=== PATIENT | male | born 1940 | race Caucasian/White ===

== ENCOUNTER 2017-02-09 14:29 | Observation (INO) | payer MEDICARE ==
[2017-02-09] MEDS ORDERED: IPRATROPIUM 0.5 MG/2.5 ML NEBU INHALATION STA (15:30)
[2017-02-09] MEDS ORDERED: methylPREDNISolone SOD SUCCI 125 MG/2 ML VIAL IV STA (15:30)
[2017-02-09] MEDS ORDERED: ALBUTEROL NEBULIZED 2.5 MG/3 ML INHALATION STA (15:30)
[2017-02-09 16:18] LABS: ALT 35 U/L (21-72); AST 19 U/L (17-59); Alkaline Phosphatase 77 U/L (38-126); Anion Gap 6 mmol/L; Blood Urea Nitrogen 14 mg/dL (9-20); Calcium 8.4 mg/dL (8.4-10.2); Carbon Dioxide 32 mmol/L (22-30); Chloride 103 mmol/L (98-107); Glucose 83 mg/dL (74-99); Non-African American GFR(MDRD) >60 (>60 ml/min/1.73 sqM); Potassium 4.1 mmol/L (3.5-5.1); Sodium 141 mmol/L (137-145); Total Bilirubin 0.4 mg/dL (0.2-1.3); Total Protein 5.9 g/dL (6.3-8.2)
[2017-02-09 16:28] LABS: INR 3.9 (<1.2); Partial Thromboplastin Time 33.2 sec (22.0-30.0); Prothrombin Time 37.8 sec (9.0-12.0)
[2017-02-09 16:30] LABS: Aty Lym Flag Slight; CH 31.2; CHCM 32.8; Creatine Kinase 24 U/L (55-170); HCT 43.3 % (39.0-53.0); HDW 2.44; HGB 13.9 gm/dL (13.0-17.5); MCH 30.7 pg (25.0-35.0); MCHC 32.1 g/dL (31.0-37.0); MCV 95.5 fL (80.0-100.0); Mean Platelet Volume 8.6; RBC 4.53 m/uL (4.30-5.90); RDW 14.3 % (11.5-15.5); WBC 10.6 k/uL (3.8-10.6); WBC (Perox) 10.51
[2017-02-09 16:43] LABS: Creatine Kinase MB 0.6 ng/mL (0.0-2.4); Troponin I <0.012 ng/mL (0.000-0.034)
--- NOTE | 2017-02-09 16:51 | XR ---
EXAMINATION TYPE: XR chest 2V DATE OF EXAM: 02/09/2017 COMPARISON: 08/28/2012 HISTORY: Shortness of breath TECHNIQUE: Frontal and lateral views of the chest are obtained. FINDINGS: Scattered senescent parenchymal changes noted. Hyperinflation compatible with COPD. Right lower lobe fibrotic change noted. Developing infiltrate is difficult to exclude. Blunting of the right costophre tom angle may reflect small effusion. Heart size is stable. Mediastinal structures are stable and grossly unremarkable. No evidence for hilar prominence. Degenerative changes dorsal spine. IMPRESSION: 1. Right lower lobe fibrotic change noted. Developing infiltrate is difficult to exclude. Blunting of the right costophrenic angle may reflect small effusion.
[2017-02-09 16:58] LABS: Add Differential Manual Differential
[2017-02-09 17:00] LABS: Nucleated Red Blood Cells 0 /100 WBC (0-0)
[2017-02-09 17:01] LABS: Plasma Cells % 1 %; Total Cells Counted 100
[2017-02-09 17:02] LABS: Manual Review Performed; RBC Morphology Normal; Reactive Lymphocytes Present
[2017-02-09] MEDS ORDERED: IPRATROPIUM-ALBUTEROL 3 ML NEB INHALATION PRN (17:06)
--- NOTE | 2017-02-09 17:06 | ED ---
General Adult HPI - General Chief complaint: Shortness of Breath Stated complaint: SOB Time Seen by Provider: 02/09/17 15:20 Source: patient, family, RN notes reviewed Mode of arrival: wheelchair Limitations: no limitations - History of Present Illness Initial comments: 76-year-old male presenting with 3 weeks of increasing cough and difficulty breathing. Patient is on home oxygen secondary to COPD, he normally uses 2 L. He normally uses albuterol as frequently as every 4 hours, over the last several days using it every 3 hours and today he took albuterol at 8 AM, 10 AM and again at 11:30, he still had significant difficulty breathing. He did attempt to be evaluated by his care analyst however he was out of the office. Patient also has past history of atrial fibrillation on Coumadin, and hypertension. He reports worsening cough which is occasionally productive of sputum. Denies fever, does report some right-sided chest pain which is worse with cough. Patient is not been on any steroids recently. He also has had chronic bilateral lower extremity swelling, this is unchanged. - Related Data Home Medications Medication Instructions Recorded Confirmed Albuterol Inhaler [Ventolin Hfa 1 - 2 puff INHALATION RT-Q6H PRN 02/09/17 Inhaler] Albuterol Nebulized [Ventolin 2.5 mg INHALATION RT-Q4H 02/09/17 02/09/17 Nebulized] Fluticasone/Salmeterol [Advair 1 puff INHALATION RT-BID 02/09/17 02/09/17 500-50 Diskus] Ipratropium Nebulized [Atrovent 0.5 mg INHALATION RT-Q4H 02/09/17 02/09/17 Nebulized] Metoprolol Tartrate [Lopressor] 50 mg PO BID 02/09/17 02/09/17 Vit C/E/Zn/Coppr/Lutein/Zeaxan 2 cap PO BID 02/09/17 02/09/17 [Preservision Areds 2 Softgel] Warfarin Sodium 7.5 mg PO MOFR 02/09/17 02/09/17 Warfarin [Coumadin] 7.5 mg PO SUTUWETHSA 02/09/17 02/09/17 amLODIPine [Norvasc] 5 mg PO BID 02/09/17 02/09/17 Allergies Allergy/AdvReac Type Severity Reaction Status Date / Time No Known Allergies Allergy Verified 02/09/17 15:45 Review of Systems ROS Statement: Those systems with pertinent positive or pertinent negative responses have been documented in the HPI. ROS Other: All systems not noted in ROS Statement are negative. Past Medical History Past Medical History: Atrial Fibrillation, COPD, Hypertension Additional Past Medical History / Comment(s): macular degeneration History of Any Multi-Drug Resistant Organisms: None Reported Past Surgical History: No Surgical Hx Reported Past Psychological History: No Psychological Hx Reported Smoking Status: Former smoker Past Alcohol Use History: None Reported Past Drug Use History: None Reported General Exam Limitations: no limitations General appearance: alert, in distress Head exam: Present: atraumatic, normocephalic Eye exam: Present: normal appearance, PERRL ENT exam: Present: normal exam, mucous membranes moist Neck exam: Present: normal inspection. Absent: tenderness, meningismus Respiratory exam: Present: respiratory distress, wheezes, decreased breath sounds, prolonged expiratory Cardiovascular Exam: Present: regular rate, irregular rhythm GI/Abdominal exam: Present: soft. Absent: distended, tenderness, guarding Extremities exam: Present: normal inspection, normal capillary refill, pedal edema Back exam: Present: normal inspection Neurological exam: Present: alert, oriented X3, CN II-XII intact. Absent: motor sensory deficit Psychiatric exam: Present: normal affect, normal mood Skin exam: Present: warm, dry, intact. Absent: cyanosis, diaphoretic Course Vital Signs 02/09/17 02/09/17 02/09/17 14:38 15:44 16:00 Temperature 97.2 F L Pulse Rate 76 78 69 Respiratory 18 Rate Blood Pressure 136/76 O2 Sat by Pulse 96 Oximetry 02/09/17 02/09/17 16:14 16:31 Temperature Pulse Rate 68 81 Respiratory Rate Blood Pressure O2 Sat by Pulse Oximetry - Reevaluation(s) Reevaluation #1: 02/09/17 17:03 Patient is given albuterol, Atrovent, steroids, reevaluation he continues to be quite dyspneic. EKG Findings - EKG Comments: EKG Findings:: EKG shows atrial fibrillation, ventricular rate of 75, QRS duration 82, QTC 473, no signs of ischemia Medical Decision Making - Medical Decision Making 72 male with history of COPD on home oxygen presents with worsening cough and dyspnea. Patient denies typical chest pain or fever. Chest x-rays obtained shows possible early infiltrate versus fibrotic change. INR is elevated at 3.9 , Coumadin will be held. CO2 is 32 consistent with chronic CO2 retention. Troponin is negative. EKG is nonischemic. On reevaluation patient is still quite dyspneic, requiring additional supplement oxygen. Patient will be admitted for further treatments. He is agreeable with this plan. Diagnosis: COPD exacerbation - Lab Data Result diagrams: 02/09/17 15:45 02/09/17 15:45 Lab Results 02/09/17 02/09/17 02/09/17 Range/Units 15:45 15:45 15:45 WBC 10.6 (3.8-10.6) k/uL RBC 4.53 (4.30-5.90) m/uL Hgb 13.9 (13.0-17.5) gm/dL Hct 43.3 (39.0-53.0) % MCV 95.5 (80.0-100.0) fL MCH 30.7 (25.0-35.0) pg MCHC 32.1 (31.0-37.0) g/dL RDW 14.3 (11.5-15.5) % Plt Count 189 (150-450) k/uL PT (9.0-12.0) sec INR (<1.2) APTT (22.0-30.0) sec Sodium 141 (137-145) mmol/L Potassium 4.1 (3.5-5.1) mmol/L Chloride 103 (98-107) mmol/L Carbon Dioxide 32 H (22-30) mmol/L Anion Gap 6 mmol/L BUN 14 (9-20) mg/dL Creatinine 0.69 (0.66-1.25) mg/dL Est GFR (MDRD) Af Amer >60 (>60 ml/min/1.73 sqM) Est GFR (MDRD) Non-Af >60 (>60 ml/min/1.73 sqM) Glucose 83 (74-99) mg/dL Calcium 8.4 (8.4-10.2) mg/dL Magnesium 2.0 (1.6-2.3) mg/dL Total Bilirubin 0.4 (0.2-1.3) mg/dL AST 19 (17-59) U/L ALT 35 (21-72) U/L Alkaline Phosphatase 77 (38-126) U/L Total Creatine Kinase 24 L (55-170) U/L CK-MB (CK-2) 0.6 (0.0-2.4) ng/mL CK-MB (CK-2) Rel Index 2.5 Troponin I <0.012 (0.000-0.034) ng/mL Total Protein 5.9 L (6.3-8.2) g/dL Albumin 3.6 (3.5-5.0) g/dL 02/09/17 Range/Units 15:45 WBC (3.8-10.6) k/uL RBC (4.30-5.90) m/uL Hgb (13.0-17.5) gm/dL Hct (39.0-53.0) % MCV (80.0-100.0) fL MCH (25.0-35.0) pg MCHC (31.0-37.0) g/dL RDW (11.5-15.5) % Plt Count (150-450) k/uL PT 37.8 H (9.0-12.0) sec INR 3.9 H (<1.2) APTT 33.2 H (22.0-30.0) sec Sodium (137-145) mmol/L Potassium (3.5-5.1) mmol/L Chloride (98-107) mmol/L Carbon Dioxide (22-30) mmol/L Anion Gap mmol/L BUN (9-20) mg/dL Creatinine (0.66-1.25) mg/dL Est GFR (MDRD) Af Amer (>60 ml/min/1.73 sqM) Est GFR (MDRD) Non-Af (>60 ml/min/1.73 sqM) Glucose (74-99) mg/dL Calcium (8.4-10.2) mg/dL Magnesium (1.6-2.3) mg/dL Total Bilirubin (0.2-1.3) mg/dL AST (17-59) U/L ALT (21-72) U/L Alkaline Phosphatase (38-126) U/L Total Creatine Kinase (55-170) U/L CK-MB (CK-2) (0.0-2.4) ng/mL CK-MB (CK-2) Rel Index Troponin I (0.000-0.034) ng/mL Total Protein (6.3-8.2) g/dL Albumin (3.5-5.0) g/dL Disposition Clinical Impression: COPD exacerbation Disposition: ADMITTED IP TO THIS HOSP Referrals: Jaswinder Hassan DO [Primary Care Provider] - 1-2 days Decision to Admit Reason: Admit from EC Decision Date: 02/09/17 Decision Time: 17:06
[2017-02-09] MEDS: METOPROLOL TARTRATE 50 MG TAB PO SCH (19:45)
[2017-02-09] MEDS: amLODIPine 5 MG TAB PO SCH (20:44)
[2017-02-09 22:59] VITALS: RESP 18
[2017-02-09] MEDS: IPRATROPIUM-ALBUTEROL 3 ML NEB INHALATION PRN (23:15)
[2017-02-10] MEDS: IPRATROPIUM-ALBUTEROL 3 ML NEB INHALATION PRN ×3 (03:03→08:45)
[2017-02-10] MEDS: METOPROLOL TARTRATE 50 MG TAB PO SCH (08:43)
[2017-02-10] MEDS: amLODIPine 5 MG TAB PO SCH (08:43)
[2017-02-10] MEDS ORDERED: LEVOFLOXACIN 500 MG TAB PO SCH (09:00)
[2017-02-10] MEDS ORDERED: predniSONE 20 MG TAB PO SCH (09:00)
--- NOTE | 2017-02-10 10:32 | P.CNPUL ---
History of Present Illness Consult date: 02/10/17 Reason for consult: dyspnea, cough, COPD, hypoxemia Chief complaint: Shortness of breath History of present illness: Consult dated 02/10/2017 76-year-old male with a history of increasing cough and shortness of breath. His been going on for at least a couple days prior to admission. The ER ramona says 3 weeks but he says just a couple of days. I see this patient in my office for his underlying severe COPD. The patient has been noncompliant over the years and doesn't use his medications as prescribed. He should be on updrafts and also Advair but he tends not to use them on a regular basis. Anyway he did have some cough. Not really producing any phlegm. No fever no chills. He apparently went to Dr. Duvall's office for a PT/INR. The nurse there nurse practitioner there is any looked a little rough and sent him to my office. He was hoping to see me yesterday but I was on-call and not in the office. Therefore, he ended up going back home. Sometime yesterday evening he decided he needed to be checked and so he came into the ER where he was evaluated. In my opinion his chest x-ray shows mostly chronic changes. Nothing acute. I think this is just simply COPD exacerbation. Review of Systems A 12 point review of systems is positive for shortness of breath difficulty breathing and some chest congestion cough without much phlegm production. No chest pain. No nausea vomiting or diarrhea. Past Medical History Past Medical History: Atrial Fibrillation, COPD, Hypertension, Pneumonia Additional Past Medical History / Comment(s): macular degeneration , home 02 2 liters n/c, emphysema, diffuise fatty tumors(benign), "poor circulation" History of Any Multi-Drug Resistant Organisms: None Reported Past Surgical History: Heart Catheterization, Hernia Repair Additional Past Surgical History / Comment(s): colonoscopy, lung bx, umb hernia , fatty tumors removed, cataracts Past Anesthesia/Blood Transfusion Reactions: No Reported Reaction Smoking Status: Former smoker - Past Family History Father History Unknown: Yes Mother Family Medical History: No Reported History Additional Family Medical History / Comment(s): form "old age" Medications and Allergies Home Medications Medication Instructions Recorded Confirmed Type Albuterol Inhaler [Ventolin Hfa 1 - 2 puff INHALATION RT-Q6H PRN 02/09/17 History Inhaler] Albuterol Nebulized [Ventolin 2.5 mg INHALATION RT-Q4H 02/09/17 02/09/17 History Nebulized] Fluticasone/Salmeterol [Advair 1 puff INHALATION RT-BID 02/09/17 02/09/17 History 500-50 Diskus] Ipratropium Nebulized [Atrovent 0.5 mg INHALATION RT-Q4H 02/09/17 02/09/17 History Nebulized] Metoprolol Tartrate [Lopressor] 50 mg PO BID 02/09/17 02/09/17 History Vit C/E/Zn/Coppr/Lutein/Zeaxan 2 cap PO BID 02/09/17 02/09/17 History [Preservision Areds 2 Softgel] Warfarin Sodium 7.5 mg PO MOFR 02/09/17 02/09/17 History Warfarin [Coumadin] 7.5 mg PO SUTUWETHSA 02/09/17 02/09/17 History amLODIPine [Norvasc] 5 mg PO BID 02/09/17 02/09/17 History Allergies Allergy/AdvReac Type Severity Reaction Status Date / Time No Known Allergies Allergy Verified 02/09/17 15:45 Physical Exam Osteopathic Statement: *. No significant issues noted on an osteopathic structural exam other than those noted in the History and Physical/Consult. Vitals: Vital Signs Temp Pulse Pulse Resp BP BP Pulse Ox 02/10/17 08:55 76 02/10/17 08:47 75 02/10/17 07:51 97.5 F L 71 18 146/66 94 L 02/10/17 06:34 76 02/10/17 06:23 76 02/10/17 04:00 98 F 92 18 129/70 95 02/10/17 03:14 72 02/10/17 03:03 76 02/09/17 23:30 84 18 02/09/17 23:25 70 02/09/17 23:15 76 02/09/17 22:58 69 18 160/74 98 02/09/17 20:06 74 02/09/17 20:00 68 20 02/09/17 19:52 72 02/09/17 19:27 98 F 66 18 151/72 96 02/09/17 17:46 98.0 F 68 20 141/60 98 02/09/17 16:31 81 02/09/17 16:14 68 02/09/17 16:00 69 02/09/17 15:44 78 02/09/17 14:38 97.2 F L 76 18 136/76 96 Intake and Output 02/09/17 02/10/17 02/10/17 22:59 06:59 14:59 Intake Total 480 Balance 480 Intake: Oral 480 Other: Voiding Method Toilet Toilet Toilet # Voids 3 Weight 125.4 kg No acute distress, oriented 3. HEENT examination is grossly unremarkable. Mucous membranes are moist. No oral lesions. Neck supple. Full range of motion. No adenopathy or thyromegaly. Cardiovascular examination reveals regular rhythm rate. S1-S2 normal. No S3- S4 or murmur. Lungs reveal diminished breath sounds. A few scattered rhonchi. No wheezes or crackles. Slight prolongation. Abdomen soft bowel sounds are heard. Extremities are intact. No cyanosis or clubbing. There is some edema. Skin without rash. Neurologic examination is nonfocal. Results - Laboratory Findings CBC and BMP: 02/09/17 15:45 02/09/17 15:45 PT/INR, D-dimer PT 37.8 sec (9.0-12.0) H 02/09/17 15:45 INR 3.9 (<1.2) H 02/09/17 15:45 Abnormal lab findings: Abnormal Labs 02/09/17 02/09/17 02/09/17 15:45 15:45 15:45 Plasma Cell # (Manual) 0.11 H PT INR APTT Carbon Dioxide 32 H Total Creatine Kinase 24 L Total Protein 5.9 L 02/09/17 15:45 Plasma Cell # (Manual) PT 37.8 H INR 3.9 H APTT 33.2 H Carbon Dioxide Total Creatine Kinase Total Protein - Diagnostic Findings Chest x-ray: image reviewed (X-rays labs and medications are all reviewed.) Assessment and Plan (1) COPD exacerbation Status: Acute Plan: Plan dated 02/10/2017 This is a patient with history of severe COPD and atrial fibrillation. The patient actually looks very very good. I think the patient could be discharged home on some prednisone with a burst and taper and oral antibiotic and his usual breathing medications. The patient should be followed by his primary physician. She also seen by cardiology. PT/INR apparently was recently checked and should be noted checked again. Additional recommendations suggestions are forthcoming. Prognosis is guarded. In my opinion, the patient' s want to be discharged home. Time with Patient: Greater than 30
[2017-02-10 11:35] VITALS: BP 155/60; PULSE 72; TEMP 97.9
[2017-02-10] MEDS ORDERED: POTASSIUM CHLORIDE ER 10 MEQ TAB.ER.PRT PO SCH (11:45)
[2017-02-10] MEDS ORDERED: FUROSEMIDE 20 MG TAB PO SCH (11:45)
[2017-02-10] MEDS ORDERED: SYMBICORT 160-4.5 MCG INHALER INHALATION SCH (20:00)
--- NOTE | 2017-02-11 13:05 | HP ---
DATE OF ADMISSION: 02/10/17 HISTORY AND PHYSICAL EXAMINATION/DISCHARGE SUMMARY CHIEF COMPLAINT: Shortness of breath. HISTORY OF PRESENT ILLNESS: This 76-year-old gentleman with past medical history of multiple medical problems including atrial fibrillation, COPD, hypertension, pneumonia, being followed by Dr. Hassan in the outpatient setting was admitted to the hospital with chest pain and shortness of breath. The patient had chest pain which was nonradiating and the patient also had some back pain. The patient has multiple symptomatology. The patient being closely monitored. There is no history of any fevers, rigors, or chills. No history of headache, loss of consciousness or seizures. Past medical history of atrial fibrillation, COPD, hypertension, history of pneumonia. Mediations prior to admission include: Home medications are: 1. Norvasc 5 mg po b.i.d. 2. Vitamins two tablets b.i.d. 3. Lopressor 50 mg po b.i.d. 4. Ativan 0.5 q4h. 5. Advair 500/50 one puff b.i.d. 6. Ventolin 2.5 q4h. 7. Ventolin inhaler prn. 8. Prednisone 10 mg. 9. K-Dur 10 meq po daily. 10. Levaquin 500 mg. 11. Lasix 20 mg. ALLERGIES: None. FAMILY HISTORY: No history of heart disease or strokes in the family. SOCIAL HISTORY: Previous history of smoking. No history of current smoking. No alcohol intake. REVIEW OF SYSTEMS: HEENT: No diminished vision. No diminished hearing. Cardiovascular system: As mentioned earlier. Respiratory: As mentioned earlier. GI: No nausea or vomiting. : No dysuria. Nervous system: No numbness, weakness. Allergy/Immunology: No asthma or hayfever. Musculoskeletal : As mentioned earlier. Hematology/oncology: No history of anemia. Endocrine: No history of diabetes mellitus or hypothyroidism. Constitutional: As mentioned earlier. Dermatology: Negative. Rheumatology: Negative. Psychiatry: As mentioned earlier. PHYSICAL EXAMINATION: The patient is alert, oriented times three. Pulse 72. Blood pressure 155/60. Respiratory rate 18, temperature 97.9. Pulse ox 99% on room air. HEENT: Conjunctivae normal. NECK: No JVD. Cardiovascular: S1, S2 muffled. Respiratory: Breath sounds diminished at the bases. A few scattered rhonchi. Expiratory wheezing also present. No crackles. Abdomen is soft, nontender. No mass palpable. Legs: No edema. No swelling. Nervous system: Higher functions as mentioned earlier. Moves all four limbs. Lymphatics: No lymph nodes palpable in the neck, axilla or groin. Skin: No ulcer, rash or bleeding. LABS: CBC within normal limits. Otherwise, INR 3.9. ASSESSMENT: 1. Chronic obstructive pulmonary disease, acute exacerbation with acute purulent tracheobronchitis. 2. History of atrial fibrillation. 3. Hypertension. 4. History of pneumonia. RECOMMENDATIONS AND DISCUSSION: In this 76 -year-old gentleman who presented with multiple medical issues, we will monitor the patient closely. Continue the current medications. Continue symptomatic treatment. Otherwise, Dr. Hassan has evaluated the patient and cleared the patient for discharge. I recommend to continue home medications and bronchodilators. See the discharge summary for the list of medications. Otherwise, prognosis guarded. Further recommendations to follow. MTDD
== END 2017-02-10 14:15 | disposition home or self-care (01) ==
LOC: EC 14:29 → 3OBS 17:06
PROVIDERS: ADMIT Internal Medicine; ATTEND Internal Medicine
DX: J44.0 Chronic obstructive pulmonary disease with (acute) lower respiratory infection (principal); J44.1 Chronic obstructive pulmonary disease with (acute) exacerbation; I48.91 Unspecified atrial fibrillation; I10 Essential (primary) hypertension; J20.9 Acute bronchitis, unspecified; M79.89 Other specified soft tissue disorders; H35.30 Unspecified macular degeneration; R09.02 Hypoxemia; Z87.01 Personal history of pneumonia (recurrent); Z99.81 Dependence on supplemental oxygen; Z79.899 Other long term (current) drug therapy; Z79.51 Long term (current) use of inhaled steroids; Z79.01 Long term (current) use of anticoagulants; Z87.891 Personal history of nicotine dependence; Z91.19 Patient's noncompliance with other medical treatment and regimen
CPT/HCPCS: 96374; 99285; 36415; 94640 ×3; 94644; 93005; 83880; 80053; 82550; 82553; 83735; 84484; 85025; 85610; 85730; 71020; G0378 ×2; J2930; J7512

== ENCOUNTER → 2017-10-08 | Outpatient (CLI) | payer MEDICARE ==
[2017-10-08 11:37] LABS: Anion Gap 8 mmol/L; Blood Urea Nitrogen 13 mg/dL (9-20); Calcium 8.8 mg/dL (8.4-10.2); Carbon Dioxide 35 mmol/L (22-30); Chloride 99 mmol/L (98-107); Glucose 124 mg/dL (74-99); Phosphorus 2.7 mg/dL (2.5-4.5); Potassium 4.1 mmol/L (3.5-5.1); Sodium 142 mmol/L (137-145)
== END | disposition home or self-care (01) ==
LOC: LABWHC1 10:43
PROVIDERS: ATTEND Internal Medicine Critical Care Medicine
DX: J44.9 Chronic obstructive pulmonary disease, unspecified (principal); R60.9 Edema, unspecified
CPT/HCPCS: 36415; 80048; 83735; 84100

== ENCOUNTER → 2017-10-31 | Outpatient (CLI) | payer MEDICARE ==
[2017-10-31 12:09] LABS: Anion Gap 9 mmol/L; Blood Urea Nitrogen 15 mg/dL (9-20); Calcium 9.2 mg/dL (8.4-10.2); Carbon Dioxide 33 mmol/L (22-30); Chloride 100 mmol/L (98-107); Glucose 102 mg/dL (74-99); Potassium 4.2 mmol/L (3.5-5.1); Sodium 142 mmol/L (137-145)
== END ==
LOC: LABWHC1 10:54
PROVIDERS: ATTEND Internal Medicine Critical Care Medicine
DX: E87.6 Hypokalemia (principal)
CPT/HCPCS: 36415; 80048

== ENCOUNTER → 2018-04-29 | Outpatient (CLI) | payer MEDICARE | LOC: LABWHC1 09:20 | PROVIDERS: ATTEND Nurse Practitioner Adult Health | DX: R00.0 Tachycardia, unspecified (principal) | CPT/HCPCS: 36415; 84443 ==

== ENCOUNTER → 2018-05-28 | Outpatient (CLI) | payer MEDICARE ==
--- NOTE | 2018-05-28 14:50 | CT ---
"EXAMINATION TYPE: CT chest wo con DATE OF EXAM: 05/28/2018 COMPARISON: No prior CTs at this location. Comparison is made of the chest x-ray of 05/04/2018 HISTORY: Increased shortness of breath CT DLP: 581.3 mGycm, Automated exposure control for dose reduction was used. CONTRAST: None TECHNIQUE: Axial images were obtained at 1 mm thick sections at 10 mm intervals. This will limit po rtions of the examination which may not be visualized within the [id number]. Images were obtained in the supine view only. FINDINGS: Portion of the thyroid visualized is normal. No suspicious lung nodules or focal infiltrat es are present. Emphysematous changes are present diffusely. Some peribronchial thickening is present . Bronchiectasis is not evident. There appears to be some peripheral increased density right midlung. Small nodules may be present measuring 0.4 cm in transverse dimension. Series 4 image 14. This exten ds towards the periphery. There is a pleural-based nodular density along the periphery of the right m idlung measuring 2.2 x 1.5 cm in depth. Neoplastic mass is not excluded. Additional workup is recomme nded. No enlarged mediastinal or hilar adenopathy is evident. The ascending aorta diameter at the level o f the main pulmonary artery is 3.6 cm. The main pulmonary artery diameter at the bifurcation is 3.2 cm. Some coronary artery calcifications present. Limited CT sections are obtained through the upper abdomen. Nonobstructing calcified renal stones may be present. IMPRESSIONS: 1. Lung mass periphery of the right midlung. Small nodularity may be within the right midlung. Standa rd CT chest with contrast recommended for additional evaluation. Neoplasm is not excluded. Consider P ET CT for additional workup A Yellow level critical message alert has been initiated for Abby Mcdermott via the [employer] | [employer] tical Results System on 05/28/2018 2:48 PM. This message alert has been sent to Abby Mcdermott via the p references provided by the clinician for the receipt of Radiology Critical Findings[place] [id number]."
== END | disposition home or self-care (01) ==
LOC: RADCTMAIN 08:14
PROVIDERS: ATTEND Internal Medicine
DX: R91.8 Other nonspecific abnormal finding of lung field (principal); R91.1 Solitary pulmonary nodule
CPT/HCPCS: 71250

== ENCOUNTER → 2018-06-08 | Outpatient (CLI) | payer MEDICARE ==
--- NOTE | 2018-06-09 06:59 | PE ---
EXAMINATION TYPE: PET CT fusion skull to thigh DATE OF EXAM: 06/08/2018 COMPARISON: Chest CT May 28, 2018. HISTORY: Abnormal CT, solitary pulmonary nodule TECHNIQUE: Following the intravenous administration of 13.105 mCi of F-18 FDG, whole body images are performed from the skull base to the midthigh. Images are reviewed on the computer in the coronal, axial, and sagittal planes. Reconstructed rotating images are created on independent workstation and reviewed on the computer. A noncontrast CT is performed in conjunction with the PET scan. SCAN: Initial Scan FINDINGS: SKULL BASE AND NECK: No suspicious hypermetabolic uptake is present CHEST, MEDIASTINUM, AND HILAR REGION: Corresponding to recent CT there is moderate to advanced emphys ematous change most prominent in the upper lobes. Correlating with recent CT there is area of masslik e consolidation or nodule in the periphery of the right midlung measuring 2.4 x 1.4 cm axial image 10 1 that shows hypermetabolic uptake, max SUV is 6.97. There is additional focus of hypermetabolic uptake anterior and superior to this correlating with acu te/subacute mildly displaced anterolateral right third rib fracture axial image 79. No additional areas of suspicious hypermetabolic uptake are present. ABDOMEN AND PELVIS: Evaluation slightly suboptimal secondary to patient's large body habitus. No susp icious hypermetabolic uptake is seen. No concerning adrenal masses are noted. OSSEOUS STRUCTURES: No suspicious hypermetabolic uptake is present. OTHER CT: Mild to moderate calcified plaque in the bilateral carotid arteries is prominent at carotid bulbs is noted. Main pulmonary artery measures 4.4 cm in diameter bifurcation axial image 92, CT findings consistent with underlying pulmonary artery hypertension. Right pulmonary artery is also dilated. Cardiomegaly with moderate right greater than left biatrial dilatation. There is coronary artery calc ification which is noted marker for coronary artery disease. There is fairly severe diffuse fat replaced atrophy of the pancreas. There is moderate to severe calcified plaque of aorta extending into pelvic branch vessels. Prostate gland is enlarged in size consistent with BPH. There is multilevel spurring in the thoracolumbar spine. There is facet arthropathy in lower lumbar l evels. There is spurring at bilateral sacroiliac joints. IMPRESSION: Correlating with recent CT there is abnormal hypermetabolic uptake in peripheral subpleur al 2.4 x 1.4 cm right midlung nodule worrisome for neoplasm. No evidence for adenopathy or metastatic disease at this time. TNM STAGING T1c,N0,M0 AJCC STAGING 1A
== END | disposition home or self-care (01) ==
LOC: RADPETMAIN 09:48
PROVIDERS: ATTEND Internal Medicine Critical Care Medicine
DX: R91.8 Other nonspecific abnormal finding of lung field (principal)
CPT/HCPCS: 78815; A9552

== ENCOUNTER 2018-10-21 12:35 | Inpatient (IN) | payer MEDICARE ==
[2018-10-21] MEDS ORDERED: NALOXONE 0.4 MG/ML 1 ML VIAL IV PRN (17:13)
[2018-10-21] MEDS ORDERED: ALPRAZolam 0.25 MG TAB PO PRN (17:16)
[2018-10-21] MEDS ORDERED: BUDESONIDE 1 MG/2 ML NEBU INHALATION SCH (17:16)
[2018-10-21] MEDS ORDERED: HYDROcodone/APAP 5-325MG 1 EACH TAB PO PRN (17:16)
[2018-10-21] MEDS: IPRATROPIUM-ALBUTEROL 3 ML NEB INHALATION PRN (17:44)
--- NOTE | 2018-10-21 17:50 | XR ---
EXAMINATION TYPE: XR chest 1V portable DATE OF EXAM: 10/21/2018 COMPARISON: 05/07/1718 HISTORY: Difficulty breathing TECHNIQUE: Single frontal view of the chest is obtained. FINDINGS: Heart appears slightly enlarged. There is 11 x 2.5 cm area of pleural thickening on the ri ght lateral chest wall that is increased compared to last exam. There is no gross heart failure. Ther e is blunting of right costophrenic angle. There are chest leads. There are no hilar masses. IMPRESSION: Increased pleural thickening on the right chest wall. Pulmonary fibrosis. COPD. The poss ibility of mesothelioma should be considered.
[2018-10-21 17:59] LABS: Albumin 4.4 g/dL (3.5-5.0); Calcium 9.5 mg/dL (8.4-10.2); Magnesium 1.9 mg/dL (1.6-2.3); Potassium 4.5 mmol/L (3.5-5.1); Total Bilirubin 0.6 mg/dL (0.2-1.3); Total Protein 6.7 g/dL (6.3-8.2)
[2018-10-21 18:04] LABS: Basophils % (A) 0 %; Eosinophils % (A) 0 %; HCT 46.8 % (39.0-53.0); HGB 15.1 gm/dL (13.0-17.5); Lymphocytes # (A) 6.2 k/uL (1.0-4.8); Lymphocytes % (A) 44 %; MCH 30.6 pg (25.0-35.0); MCHC 32.2 g/dL (31.0-37.0); MCV 94.9 fL (80.0-100.0); Mean Platelet Volume 8.2; Monocytes # (A) 0.1 k/uL (0-1.0); Monocytes % (A) 1 %; Neutrophils # (A) 7.1 k/uL (1.3-7.7); Neutrophils % (A) 51 %; Platelet Count 254 k/uL (150-450); RBC 4.94 m/uL (4.30-5.90); RDW 13.7 % (11.5-15.5)
[2018-10-21 18:15] LABS: Glucose,Whole Blood 144 mg/dL (75-99)
[2018-10-21] MEDS: INSULIN ASPART (NovoLOG) 100 UNIT/ML VIAL SQ SCH ×2 (18:16→22:08)
[2018-10-21] MEDS: methylPREDNISolone SOD SUCCI 125 MG/2 ML VIAL IV SCH (18:20)
[2018-10-21] MEDS: SODIUM CHLORIDE 0.9% 1,000 ML IV SCH (18:20)
[2018-10-21] MEDS: BUDESONIDE 1 MG/2 ML NEBU INHALATION SCH (18:21)
[2018-10-21] MEDS: FORMOTEROL FUMARATE 20 MCG/2 ML NEBU INHALATION SCH (18:21)
[2018-10-21 19:34] LABS: ABG Base Excess 3.4 mmol/L; ABG HCO3 28 mmol/L (21-25); ABG Oxygen Saturation 99.5 % (94-97); ABG PCO2 42 mmHg (35-45); ABG PH 7.43 (7.35-7.45); ABG PO2 210 mmHg (83-108); ABG TCO2 29 mmol/L (19-24)
[2018-10-21] MEDS: IPRATROPIUM-ALBUTEROL 3 ML NEB INHALATION SCH (19:39)
[2018-10-21] MEDS: AZITHROMYCIN 500 MG in SODIUM CHLORIDE 0.9% 250 ML IVPB SCH (19:46)
[2018-10-21 20:24] LABS: Glucose,Whole Blood 235 mg/dL (75-99)
[2018-10-21] MEDS: LORazepam 2 MG/ML INJ IV PRN (20:56)
[2018-10-21 20:59] LABS: Appearance,Urine Clear (Clear); Bilirubin,Urine Negative (Negative); Blood,Urine Trace (Negative); Color,Urine Yellow; Glucose,Urine (UA) Negative (Negative); Hyaline Casts,Urine 26 /lpf (0-2); Ketones,Urine Negative (Negative); Leukocyte Esterase,Urine Negative (Negative); Mucus,Urine Rare /hpf; Nitrite,Urine Negative (Negative); PH, Urine 6.5 (5.0-8.0); Protein,Urine Trace (Negative); RBC,Urine 5 /hpf (0-5); Specific Gravity,Urine 1.017 (1.001-1.035); Urobilinogen,Urine <2.0 mg/dL (<2.0); WBC,Urine <1 /hpf (0-5)
[2018-10-21] MEDS ORDERED: HEPARIN SODIUM,PORCINE 5,000 UNIT/ML 1 ML VIAL SQ SCH (21:00)
[2018-10-21 21:11] LABS: INR 2.6 (<1.2); Prothrombin Time 24.7 sec (9.0-12.0)
[2018-10-21] MEDS: amLODIPine 5 MG TAB PO SCH (22:07)
[2018-10-21] MEDS: METOPROLOL TARTRATE 25 MG TAB PO SCH (22:07)
[2018-10-21] MEDS: WARFARIN 7.5 MG TAB PO SCH (22:08)
[2018-10-22] MEDS: methylPREDNISolone SOD SUCCI 125 MG/2 ML VIAL IV SCH ×4 (00:32→17:46)
--- NOTE | 2018-10-22 02:32 | HP ---
HISTORY AND PHYSICAL DATE OF SERVICE: 10/21/2018 CHIEF COMPLAINT: Shortness of breath. HISTORY OF PRESENT ILLNESS: This 77-year-old gentleman with a past medical history of COPD, history of atrial fibrillation, hypertension, macular degeneration, history of cardiac catheterization, being followed by Dr. Hassan in the outpatient setting, was complaining of shortness of breath for the past several days. The patient presented to [facility] and patient had BiPAP applied initially but patient I discussed the case with [facility] physician. The patient transferred to [facility] for further evaluation and treatment. Patient improved significantly. Patient put on nasal cannula, but currently the patient is also experiencing more exacerbation of shortness of breath. The ABG showed pH of 7.43, which is normal but however, PO2 was 42. WBC is 14. Patient started on broad IV antibiotics, steroids and bronchodilators. PAST MEDICAL HISTORY: Reviewed. Past medical history of atrial fibrillation, COPD, hypertension, pneumonia, history of macular degeneration. MEDICATIONS PRIOR TO ADMISSION: 1. Prednisone 10 mg daily. 2. Norvasc 5 mg p.o. b.i.d. 3. Coumadin 3.7 mg Sunday, Sunday, Sunday, , and 7.5 mg Sunday, Sunday. 4. PreserVision eye drops. 5. Lopressor 70 mg p.o. b.i.d. 6. DuoNeb q.4 p.r.n. 7. Lasix 40 mg b.i.d. 8. Ventolin 1-2 puffs q.6h p.r.n. ALLERGIES: None. FAMILY HISTORY: No history of cardiovascular disease. SOCIAL HISTORY: Previous history of smoking. No history of current smoking or alcohol intake. REVIEW OF SYSTEMS: ENT: Diminished hearing and vision. CARDIOVASCULAR: As mentioned. RESPIRATORY: As mentioned earlier. GI: No nausea or vomiting. : No dysuria. NERVOUS SYSTEM: No numbness or weakness. ALLERGY/IMMUNOLOGY: No asthma or hayfever. MUSCULOSKELETAL: As mentioned earlier. HEMATOLOGY/ONCOLOGY: No anemia. ENDOCRINE: As mentioned earlier. CONSTITUTIONAL: As mentioned earlier. Dermatology: Negative. Rheumatology: Negative. Psychiatry: As mentioned earlier. PHYSICAL EXAM: The patient is alert and oriented times three. Pulse is 111 and irregular. Blood pressure is 171/80, respirations 24, temperature 98 degrees, pulse ox 99% on BiPAP 50% nasal cannula 5%. The patient is saturating well in 90s. HEENT: Conjunctivae normal. Oral mucosa moist. Neck is no jugular venous distention. No carotid bruit. No lymph node enlargement. RESPIRATORY: Breathing efforts are markedly increased. Bilateral scattered rhonchi and crackles. ABDOMEN: Soft, nontender. No mass palpable. LEGS: No edema. No swelling. NERVOUS SYSTEM: Higher functions as mentioned earlier. Moves all four extremities. No focal deficits. Lymphatics: No lymph nodes palpable in the neck, axillae or groin. SKIN: No ulcer, rash or bleeding. JOINTS: No active deforming arthropathy. LABS: WBC 14, hemoglobin 15. Chest x-ray reviewed with possible right pleural thickening. ASSESSMENT: 1. Chronic obstructive pulmonary disease acute exacerbation with acute purulent tracheobronchitis or bronchopneumonia. 2. Increased pleural thickening of the right side. 3. Acute hypoxic hypercarbic respiratory failure status post BiPAP. 4. History of atrial fibrillation. 5. Hypertension. 6. History of pneumonia. 7. History of macular degeneration. 8. Chronic hypoxic respiratory failure. 9. Remote history of nicotine dependence. 10.Left foot pain. 11.NO CODE, NO CPR, NO VENT. 12.Obesity with body mass of 35.4. RECOMMENDATIONS AND DISCUSSION: This 77-year-old gentleman who presented with multiple complex medical issues, we will monitor the patient closely, continue the current management and medications. We will initiate broad-spectrum IV antibiotics as well as steroids. Closely follow with Dr. Mcdermott. Obtain cultures. Influenza swab. Resume the home medications. Prognosis guarded because of multiple complex medical issues. Further recommendations to follow. We will monitor PT/INR also. See orders for details. Also obtain cardiology consultation for atrial fibrillation also. MMODL / IJN: [id number] / STEF
[2018-10-22] MEDS: LORazepam 2 MG/ML INJ IV PRN ×3 (04:13→18:54)
[2018-10-22 05:26] LABS: Basophils % (A) 0 %; Eosinophils % (A) 0 %; HCT 42.3 % (39.0-53.0); HGB 13.5 gm/dL (13.0-17.5); Lymphocytes # (A) 6.2 k/uL (1.0-4.8); Lymphocytes % (A) 38 %; MCH 30.1 pg (25.0-35.0); Mean Platelet Volume 8.5; Monocytes # (A) 0.3 k/uL (0-1.0); Monocytes % (A) 2 %; Neutrophils # (A) 9.5 k/uL (1.3-7.7); Neutrophils % (A) 58 %; Platelet Count 215 k/uL (150-450); RDW 13.5 % (11.5-15.5); WBC 16.4 k/uL (3.8-10.6)
[2018-10-22 05:36] LABS: INR 2.4 (<1.2); Prothrombin Time 23.2 sec (9.0-12.0)
[2018-10-22 05:38] LABS: Anion Gap 8 mmol/L; Blood Urea Nitrogen 26 mg/dL (9-20); Calcium 9.4 mg/dL (8.4-10.2); Carbon Dioxide 29 mmol/L (22-30); Chloride 99 mmol/L (98-107); Glucose 141 mg/dL (74-99); Sodium 136 mmol/L (137-145)
--- NOTE | 2018-10-22 07:12 | P.CRDCN ---
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 The patient presented to [facility] with difficulty breathing and he was started on BiPAP. Subsequently he was transferred to [facility] for further evaluation and initially he was admitted to the medical floor. He gets more short of breath on the floor and he was transferred to the intensive care unit. The patient overall is a poor historian and currently he is on BiPAP. No symptoms of chest pain or chest discomfort, dizziness, heart racing, or syncope. No history of coronary artery disease according to him. No history of congestive heart failure. He does have chronic atrial fibrillation and he is maintaining oral anticoagulation was Coumadin as well as he is on metoprolol for heart rate control. Overall his heart rate has been controlled but every time he goes into respiratory distress the heart rate goes up to above 100 beats per minutes. The chest x-ray showed findings consistent with COPD as well as pulmonary fibrosis. We don't have 12 EKG on him at this point. He is on Coumadin and the INR appeared to be therapeutic. Currently the patient also is on steroid as well as he is on antibiotic. Past Medical History Past Medical History: Atrial Fibrillation, COPD, Hypertension, Pneumonia Additional Past Medical History / Comment(s): macular degeneration , home 02 three liters nasal cannula, emphysema, diffuise fatty tumors(benign), "poor circulation" History of Any Multi-Drug Resistant Organisms: None Reported Past Surgical History: Heart Catheterization, Hernia Repair Additional Past Surgical History / Comment(s): colonoscopy, lung bx, umbilica he rnia, fatty tumors removed, cataracts Past Anesthesia/Blood Transfusion Reactions: No Reported Reaction Past Psychological History: No Psychological Hx Reported Additional Psychological History / Comment(s): pt is independant. lives with his in single level home that has 1 step or ramp to enter home. no pets. no home care services recieved.has home 02 and nebulizer. Smoking Status: Former smoker Past Alcohol Use History: None Reported Additional Past Alcohol Use History / Comment(s): started smoking at age 10 , quit 2002, smoked 2ppd Past Drug Use History: None Reported - Past Family History Father History Unknown: Yes Mother Family Medical History: No Reported History Additional Family Medical History / Comment(s): form "old age" Medications and Allergies Home Medications Medication Instructions Recorded Confirmed Type Albuterol Inhaler [Ventolin Hfa 1 - 2 puff INHALATION RT-Q6H PRN 02/09/17 10/21/18 History Inhaler] Vit C/E/Zn/Coppr/Lutein/Zeaxan 2 cap PO BID 02/09/17 10/21/18 History [Preservision Areds 2 Softgel] amLODIPine [Norvasc] 5 mg PO BID 02/09/17 10/21/18 History Ipratropium-Albuterol Nebulize 3 ml INHALATION RT-Q4H PRN 06/10/17 10/21/18 History [Duoneb 0.5 mg-3 mg/3 ml Soln] predniSONE 10 mg PO DAILY 16 Days #40 tab 06/14/17 10/21/18 Rx Furosemide [Lasix] 40 mg PO BID 10/21/18 10/21/18 History Metoprolol Tartrate [Lopressor] 75 mg PO BID 10/21/18 10/21/18 History Warfarin [Coumadin] 3.75 mg PO SUMOTUTH 10/21/18 10/21/18 History Warfarin [Coumadin] 7.5 mg PO WESA 10/21/18 10/21/18 History Allergies Allergy/AdvReac Type Severity Reaction Status Date / Time No Known Allergies Allergy Verified 10/21/18 17:21 Physical Exam Vitals: Vital Signs Temp Pulse Pulse Resp BP BP Pulse Ox 10/22/18 07:00 106 H 14 158/75 97 10/22/18 06:00 91 28 H 135/66 98 10/22/18 05:00 106 H 32 H 151/73 97 10/22/18 04:00 97.5 F L 92 30 H 149/84 98 10/22/18 03:00 110 H 45 H 150/72 97 10/22/18 02:00 76 26 H 141/78 99 10/22/18 01:00 87 32 H 143/79 98 10/22/18 00:00 98.0 F 94 34 H 142/74 97 10/21/18 23:30 84 28 H 142/74 98 10/21/18 23:00 93 35 H 143/72 97 10/21/18 22:30 105 H 27 H 143/72 98 10/21/18 22:00 88 18 154/79 98 10/21/18 21:30 98 23 150/68 96 10/21/18 21:00 96 16 153/75 98 10/21/18 20:40 105 H 34 H 153/75 98 10/21/18 20:30 97.5 F L 123 H 38 H 167/100 96 10/21/18 19:55 111 H 28 H 10/21/18 19:39 106 H 29 H 10/21/18 18:37 111 H 24 10/21/18 18:32 116 H 24 10/21/18 18:21 118 H 28 H 10/21/18 17:52 106 H 25 H 10/21/18 17:45 108 H 28 H 10/21/18 15:40 98 F 107 H 24 171/80 99 Intake and Output 10/21/18 10/22/18 10/22/18 22:59 06:59 14:59 Intake Total 670 160 20 Output Total 380 305 35 Balance 290 -145 -15 Intake: IV 310 160 20 Azithromycin 500 mg In 250 Sodium Chloride 0.9% 250 ml @ 250 mls/hr IVPB DAILY@1800 [facility] Rx#: [id number] Sodium Chloride 0.9% 1, 60 160 20 000 ml @ 20 mls/hr IV . Q24H [facility] Rx#:[id number] Oral 360 Output: Urine 380 305 35 Other: Voiding Method Indwelling Catheter Indwelling Catheter Weight 125 kg - Constitutional General appearance: mild distress - Respiratory Respiratory: bilateral: diminished - Cardiovascular Rhythm: irregularly irregular Heart sounds: normal: S1, S2 Results 10/22/18 04:15 10/22/18 04:15 Cardiac Enzymes 10/21/18 Range/Units 17:33 AST 18 (17-59) U/L Coagulation 10/21/18 10/22/18 Range/Units 20:22 04:15 PT 24.7 H 23.2 H (9.0-12.0) sec CBC 10/21/18 10/22/18 Range/Units 17:33 04:15 WBC 14.0 H 16.4 H (3.8-10.6) k/uL RBC 4.94 4.50 (4.30-5.90) m/uL Hgb 15.1 13.5 (13.0-17.5) gm/dL Hct 46.8 42.3 (39.0-53.0) % Plt Count 254 215 (150-450) k/uL Comprehensive Metabolic Panel 10/21/18 10/22/18 Range/Units 17:33 04:15 Sodium 139 136 L (137-145) mmol/L Potassium 4.5 4.0 (3.5-5.1) mmol/L Chloride 98 99 (98-107) mmol/L Carbon Dioxide 32 H 29 (22-30) mmol/L BUN 20 26 H (9-20) mg/dL Creatinine 0.96 0.85 (0.66-1.25) mg/dL Glucose 147 H 141 H (74-99) mg/dL Calcium 9.5 9.4 (8.4-10.2) mg/dL AST 18 (17-59) U/L ALT 19 L (21-72) U/L Alkaline Phosphatase 76 (38-126) U/L Total Protein 6.7 (6.3-8.2) g/dL Albumin 4.4 (3.5-5.0) g/dL Current Medications Generic Name Dose Route Start Last Admin Trade Name Freq PRN Reason Stop Dose Admin Hydrocodone Bitart/Acetaminophen 1 each 10/21/18 17:16 [place] 5-325 PO Q6HR PRN Pain Albuterol/Ipratropium 3 ml 10/21/18 20:00 10/21/18 19:39 Duoneb 0.5 Mg-3 Mg/3 Ml Soln INHALATION 3 ml RT-QID [facility] Administration Albuterol/Ipratropium 3 ml 10/21/18 17:16 10/21/18 17:44 Duoneb 0.5 Mg-3 Mg/3 Ml Soln INHALATION 3 ml RT-QID PRN Administration Shortness Of Breath Or Wheezing Alprazolam 0.25 mg 10/21/18 17:16 Xanax PO TID PRN Anxiety Amlodipine Besylate 5 mg 10/21/18 21:00 05/06/19 22:07 Norvasc PO 5 mg BID I[facility] Administration Budesonide 1 mg 10/21/18 18:00 10/21/18 18:21 Pulmicort INHALATION 1 mg RT-BID [facility] Administration Formoterol Fumarate 20 mcg 10/21/18 18:00 10/21/18 18:21 Perforomist INHALATION 20 mcg RT-BID [facility] Administration Furosemide 40 mg 10/22/18 09:00 Lasix PO BID@0900,1600 [facility] Azithromycin 500 mg/ Sodium 250 mls @ 250 mls/hr 10/21/18 18:30 10/21/18 19:46 Chloride IVPB 250 mls/hr DAILY@1800 [facility] Administration Ceftriaxone Sodium 1 gm/ 50 mls @ 100 mls/hr 10/21/18 17:30 10/21/18 18:21 Sodium Chloride IVPB 100 mls/hr Q24HR [facility] Administration Sodium Chloride 1,000 mls @ 20 mls/hr 10/21/18 17:15 10/21/18 18:20 Saline 0.9% IV 20 mls/hr .Q24H [facility] Administration Insulin Aspart 0 unit 10/21/18 17:30 10/21/18 22:08 Novolog SQ 5 unit ACHS [facility] Administration Protocol Lorazepam 0.5 mg 10/21/18 20:42 10/22/18 06:50 Ativan IV 0.5 mg Q2HR PRN Administration Anxiety Methylprednisolone Sodium Succinate 60 mg 10/21/18 18:00 10/22/18 06:29 Solu-Medrol IV 60 mg Q6HR [facility] Administration Metoprolol Tartrate 75 mg 10/21/18 21:00 10/21/18 22:07 Lopressor PO 75 mg BID [facility] Administration Multivitamins 1 each 10/22/18 12:00 Theragran PO DAILY@1200 [facility] Naloxone HCl 0.2 mg 10/21/18 17:13 Narcan IV Q2M PRN Opioid Reversal Pantoprazole Sodium 40 mg 10/22/18 07:30 Protonix PO AC-BRKFST [facility] Warfarin Sodium 7.5 mg 10/23/18 18:00 Coumadin PO WeSa@1800 [facility] Warfarin Sodium 3.75 mg 10/21/18 20:00 10/21/18 22:08 Coumadin PO 3.75 mg SuMoTuTh@1800 [facility] Administration Intake and Output 10/21/18 10/22/18 10/22/18 22:59 06:59 14:59 Intake Total 670 160 20 Output Total 380 305 35 Balance 290 -145 -15 Intake: IV 310 160 20 Azithromycin 500 mg In 250 Sodium Chloride 0.9% 250 ml @ 250 mls/hr IVPB DAILY@1800 [facility] Rx#: [id number] Sodium Chloride 0.9% 1, 60 160 20 000 ml @ 20 mls/hr IV . Q24H [facility] Rx#:[id number] Oral 360 Output: Urine 380 305 35 Other: Voiding Method Indwelling Catheter Indwelling Catheter Weight 125 kg 10/22/18 04:15 10/22/18 04:15 Assessment and Plan Assessment: Assessment #1 acute on chronic hypoxic respiratory failure #2 COPD exacerbation #3 possible pneumonia #4 chronic persistent atrial fibrillation #5 multiple comorbid conditions Plan #1 continue the current medical regimen including current dose of metoprolol #2 continue oral anticoagulation was committed and #3 I would consider increasing the dose of metoprolol if we have to. We'll continue monitor the heart rate #4 obtain an echocardiogram was Doppler #5 follow-up with the patient Thank you for allowing us participate in the care of the patient and we will continue following up with him
[2018-10-22] MEDS: FORMOTEROL FUMARATE 20 MCG/2 ML NEBU INHALATION SCH ×2 (07:28→19:12)
[2018-10-22] MEDS: BUDESONIDE 1 MG/2 ML NEBU INHALATION SCH ×2 (07:28→19:02)
[2018-10-22] MEDS: IPRATROPIUM-ALBUTEROL 3 ML NEB INHALATION SCH ×4 (07:28→19:03)
[2018-10-22 07:29] LABS: Glucose,Whole Blood 184 mg/dL (75-99)
[2018-10-22 09:05] LABS: ABG Base Excess 5.4 mmol/L; ABG HCO3 30 mmol/L (21-25); ABG Oxygen Saturation 97.9 % (94-97); ABG PCO2 51 mmHg (35-45); ABG PH 7.39 (7.35-7.45); ABG PO2 107 mmHg (83-108); ABG TCO2 32 mmol/L (19-24)
[2018-10-22 09:14] LABS: Magnesium 1.9 mg/dL (1.6-2.3); Phosphorus 3.5 mg/dL (2.5-4.5)
--- NOTE | 2018-10-22 09:59 | XR ---
EXAMINATION TYPE: XR chest 1V portable DATE OF EXAM: 10/22/2018 COMPARISON: 10/21/2018 INDICATION: Pulmonary fibrosis TECHNIQUE: Single frontal view of the chest is obtained. FINDINGS: The heart size is mildly prominent. The pulmonary vasculature is normal. There is some thickening and stranding along the right pleural margin. This is slightly smaller on th e current examination. No suspicious infiltrates are otherwise evident. IMPRESSION: 1. Area of increased density along the right mid pleural margin appears slightly smaller compared to the previous examination. Continued follow-up is recommended. Neoplasm is not excluded.
[2018-10-22] MEDS: PANTOPRAZOLE 40 MG TABLET PO SCH (10:48)
[2018-10-22] MEDS: amLODIPine 5 MG TAB PO SCH ×2 (10:48→21:00)
[2018-10-22] MEDS: INSULIN ASPART (NovoLOG) 100 UNIT/ML VIAL SQ SCH ×4 (10:48→21:00)
[2018-10-22] MEDS: METOPROLOL TARTRATE 25 MG TAB PO SCH ×2 (10:49→21:00)
[2018-10-22] MEDS: FUROSEMIDE 40 MG TAB PO SCH ×2 (10:49→17:12)
--- NOTE | 2018-10-22 11:57 | ECHOF ---
Referral Reason:a.fib MEASUREMENTS -------- HEIGHT: 188.0 cm WEIGHT: 124.7 kg BP: 131/74 IVSd: 1.7 cm (0.6 - 1.1) LVIDd: 4.4 cm (3.9 - 5.3) LVPWd: 1.7 cm (0.6 - 1.1) IVSs: 2.2 cm LVIDs: 3.0 cm LVPWs: 2.0 cm LA Diam: 3.9 cm (2.7 - 3.8) RVIDd: 4.1 cm (< 3.3) Ao Diam: 4.0 cm (2.0 - 3.7) AV Cusp: 1.9 cm (1.5 - 2.6) EPSS: 0.5 cm RAP: 5.00 mmHg RVSP: 48.16 mmHg MV EF SLOPE: 95.83 mm/s (70 - 150) MV EXCURSION: 27.61 mm (> 18.000) FINDINGS -------- Resting tachycardia (HR>100bpm). This was a technically difficult study with suboptimal views. The left ventricular size is normal. There is severe concentric left ventricular hypertrophy. Ove rall left ventricular systolic function is normal with, an EF between 60 - 65 %. The right ventricle is moderately enlarged. The left atrial size is normal. The right atrium was not well visualized. 3 ml of Lumason was utilized for enhancement of images. There is mild aortic valve sclerosis. There is trace mitral regurgitation. Mild tricuspid regurgitation present. There is moderate pulmonary hypertension. The right ventric ular systolic pressure, as measured by Doppler, is 48.16mmHg. There is no pulmonic regurgitation present. The aortic root is dilated measuring 4.0cm. Normal inferior vena cava with normal inspiratory collapse consistent with estimated right atrial pre ssure of 5 mmHg. The inferior vena cava is mildly dilated. There is no pericardial effusion. CONCLUSIONS -------- 1. Resting tachycardia (HR>100bpm). 2. This was a technically difficult study with suboptimal views. 3. The left ventricular size is normal. 4. There is severe concentric left ventricular hypertrophy. 5. Overall left ventricular systolic function is normal with, an EF between 60 - 65 %. 6. The right ventricle is moderately enlarged. 7. The left atrial size is normal. 8. The right atrium was not well visualized. 9. 3 ml of Lumason was utilized for enhancement of images. 10. There is mild aortic valve sclerosis. 11. There is trace mitral regurgitation. 12. Mild tricuspid regurgitation present. 13. There is moderate pulmonary hypertension. 14. The right ventricular systolic pressure, as measured by Doppler, is 48.16mmHg. 15. There is no pulmonic regurgitation present. 16. The aortic root is dilated measuring 4.0cm. 17. Normal inferior vena cava with normal inspiratory collapse consistent with estimated right atrial pressure of 5 mmHg. 18. The inferior vena cava is mildly dilated. 19. There is no pericardial effusion. [employer]: Sharita Carter RDCS
[2018-10-22 12:08] LABS: Glucose,Whole Blood 187 mg/dL (75-99)
--- NOTE | 2018-10-22 12:40 | P.CNPUL ---
History of Present Illness Consult date: 10/22/18 Requesting physician: Pool Murphy Reason for consult: dyspnea Chief complaint: Shortness of breath History of present illness: This is a 77-year-old white male with history of multiple medical problems including severe COPD called stage IV, interstitial lung disease, and multiple pulmonary nodules with abnormal PET scan done in the last 6 months reflecting a suspicious right midlung mass, strongly suspicious for malignancy. Patient is O2 dependent, he normally sees Dr. Hassan in the office on a regular basis. Patient is also known to have history of atrial fibrillation, macular degenerat ion, brought into the hospital with a few days' history of increased shortness of breath, cough, wheezing. He was initially seen at [facility], required to be placed on BiPAP, and his condition remains marginal. Patient was transferred as a direct admit to [facility], and shortly after he arrived, I was notified by the nurse taking care of the patient that he wasn't doing well. Patient was in moderate severe respiratory distress, ABG on the medical floor showed a pO2 of 210 pCO2 of 42 pH of 7.43. Patient was placed on BiPAP, transferred to the intensive care unit, and repeat ABG this morning showed a pO2 of 107 pCO2 of 51 pH of 7.39. Patient was already started on bronchodilators, steroids, empiric antibiotics, steroids, and follow-up chest x-ray showed increased density in the right midlung pleural margin, strongly suspicious for neoplasm. It also showed interstitial changes suggestive of underlying interstitial lung disease. Patient had a DO NOT RESUSCITATE CODE STATUS, shortly after I evaluated the patient, and reviewed his ABG, recommended that the patient could be placed back on a monitor bed on selective. In the meantime I will continue his treatment plan including bronchodilators, antibiotics, steroids, and he was already seen by cardiology for his chronic atrial fibrillation. Patient is an extremely poor historian. Review of Systems ROS unobtainable: due to mental status Past Medical History Past Medical History: Atrial Fibrillation, COPD, Hypertension, Pneumonia Additional Past Medical History / Comment(s): macular degeneration , home 02 three liters nasal cannula, emphysema, diffuise fatty tumors(benign), "poor circ ulation" History of Any Multi-Drug Resistant Organisms: None Reported Past Surgical History: Heart Catheterization, Hernia Repair Additional Past Surgical History / Comment(s): colonoscopy, lung bx, umbilica hernia, fatty tumors removed, cataracts Past Anesthesia/Blood Transfusion Reactions: No Reported Reaction Past Psychological History: No Psychological Hx Reported Additional Psychological History / Comment(s): pt is independant. lives with his in single level home that has 1 step or ramp to enter home. no pets. no home care services recieved.has home 02 and nebulizer. Smoking Status: Former smoker Past Alcohol Use History: None Reported Additional Past Alcohol Use History / Comment(s): started smoking at age 10 , quit 2002, smoked 2ppd Past Drug Use History: None Reported - Past Family History Father History Unknown: Yes Mother Family Medical History: No Reported History Additional Family Medical History / Comment(s): form "old age" Medications and Allergies Home Medications Medication Instructions Recorded Confirmed Type Albuterol Inhaler [Ventolin Hfa 1 - 2 puff INHALATION RT-Q6H PRN 02/09/17 10/21/18 History Inhaler] Vit C/E/Zn/Coppr/Lutein/Zeaxan 2 cap PO BID 02/09/17 10/21/18 History [Preservision Areds 2 Softgel] amLODIPine [Norvasc] 5 mg PO BID 02/09/17 10/21/18 History Ipratropium-Albuterol Nebulize 3 ml INHALATION RT-Q4H PRN 06/10/17 10/21/18 History [Duoneb 0.5 mg-3 mg/3 ml Soln] predniSONE 10 mg PO DAILY 16 Days #40 tab 06/14/17 10/21/18 Rx Furosemide [Lasix] 40 mg PO BID 10/21/18 10/21/18 History Metoprolol Tartrate [Lopressor] 75 mg PO BID 10/21/18 10/21/18 History Warfarin [Coumadin] 3.75 mg PO SUMOTUTH 10/21/18 10/21/18 History Warfarin [Coumadin] 7.5 mg PO WESA 10/21/18 10/21/18 History Allergies Allergy/AdvReac Type Severity Reaction Status Date / Time No Known Allergies Allergy Verified 10/21/18 17:21 Physical Exam Vitals: Vital Signs Temp Pulse Pulse Resp BP BP Pulse Ox 10/22/18 11:49 110 H 10/22/18 11:38 104 H 10/22/18 11:00 113 H 33 H 131/88 94 L 10/22/18 10:00 116 H 32 H 147/80 96 10/22/18 09:00 111 H 32 H 152/78 97 10/22/18 08:00 97.8 F 106 H 38 H 131/74 98 10/22/18 07:50 108 H 10/22/18 07:40 111 H 10/22/18 07:31 110 H 10/22/18 07:00 106 H 14 158/75 97 10/22/18 06:00 91 28 H 135/66 98 10/22/18 05:00 106 H 32 H 151/73 97 10/22/18 04:00 97.5 F L 92 30 H 149/84 98 10/22/18 03:00 110 H 45 H 150/72 97 10/22/18 02:00 76 26 H 141/78 99 10/22/18 01:00 87 32 H 143/79 98 10/22/18 00:00 98.0 F 94 34 H 142/74 97 10/21/18 23:30 84 28 H 142/74 98 10/21/18 23:00 93 35 H 143/72 97 10/21/18 22:30 105 H 27 H 143/72 98 10/21/18 22:00 88 18 154/79 98 10/21/18 21:30 98 23 150/68 96 10/21/18 21:00 96 16 153/75 98 10/21/18 20:40 105 H 34 H 153/75 98 10/21/18 20:30 97.5 F L 123 H 38 H 167/100 96 10/21/18 19:55 111 H 28 H 10/21/18 19:39 106 H 29 H 10/21/18 18:37 111 H 24 10/21/18 18:32 116 H 24 10/21/18 18:21 118 H 28 H 10/21/18 17:52 106 H 25 H 10/21/18 17:45 108 H 28 H 10/21/18 15:40 98 F 107 H 24 171/80 99 Intake and Output 10/21/18 10/22/18 10/22/18 22:59 06:59 14:59 Intake Total 670 160 150 Output Total 380 305 165 Balance 290 -145 -15 Intake: IV 310 160 100 Azithromycin 500 mg In 250 Sodium Chloride 0.9% 250 ml @ 250 mls/hr IVPB DAILY@1800 [facility] Rx#: [id number] Sodium Chloride 0.9% 1, 60 160 100 000 ml @ 20 mls/hr IV . Q24H [facility] Rx#:[id number] Intake, IV Titration 50 Amount cefTRIAXone 1 gm In 50 Sodium Chloride 0.9% 50 ml @ 100 mls/hr IVPB Q24HR [facility] Rx#:[id number] Oral 360 Output: Urine 380 305 165 Other: Voiding Method Indwelling Catheter Indwelling Catheter Indwelling Catheter Weight 125 kg 119 kg Physical Exam: Revealed a 77-year-old white male, in moderate respiratory d istress, on BiPAP. Arousable, but seems to be confused. Head: Atraumatic, normocephalic. HEENT:[Neck is supple.] [No neck masses.] [No thyromegaly.] [No JVD.] PERRLA, EOMI, no icterus. Chest: Bilateral scattered rhonchi and wheezes, no evidence of chest retraction. Symmetrical chest expansion. Cardiac Exam: Irregular irregular rhythm. [Normal S1 and S2, no S3 gallop, no murmur.] Abdomen: [Soft, nontender, no megaly, no rebound, no guarding, normal bowel sounds.] Extremities: [No clubbing, no edema, no cyanosis.] Neurological Exam: [Confused, follows simple instructions, no gross focal def icit otherwise. Skin: No rashes. Lymphatics: No lymphadenopathy. Musculoskeletal: No limitation in range of motion, no deformities. Results - Laboratory Findings CBC and BMP: 10/22/18 04:15 10/22/18 04:15 ABG ABG pH 7.39 (7.35-7.45) 10/22/18 09:04 ABG pCO2 51 mmHg (35-45) H 10/22/18 09:04 ABG pO2 107 mmHg (83-108) 10/22/18 09:04 ABG O2 Saturation 97.9 % (94-97) H 10/22/18 09:04 PT/INR, D-dimer PT 23.2 sec (9.0-12.0) H 10/22/18 04:15 INR 2.4 (<1.2) H 10/22/18 04:15 Abnormal lab findings: Abnormal Labs 10/21/18 10/21/18 10/21/18 17:33 17:33 18:13 WBC 14.0 H Neutrophils # Lymphocytes # 6.2 H PT INR ABG pCO2 ABG pO2 ABG HCO3 ABG Total CO2 ABG O2 Saturation Sodium Carbon Dioxide 32 H BUN Glucose 147 H POC Glucose (mg/dL) 144 H ALT 19 L Urine Protein Urine Blood Hyaline Casts Urine Mucus 10/21/18 10/21/18 10/21/18 19:25 20:11 20:22 WBC Neutrophils # Lymphocytes # PT 24.7 H INR 2.6 H ABG pCO2 ABG pO2 210 H ABG HCO3 28 H ABG Total CO2 29 H ABG O2 Saturation 99.5 H Sodium Carbon Dioxide BUN Glucose POC Glucose (mg/dL) 235 H ALT Urine Protein Urine Blood Hyaline Casts Urine Mucus 10/21/18 10/22/18 10/22/18 Unknown 04:15 04:15 WBC 16.4 H Neutrophils # 9.5 H Lymphocytes # 6.2 H PT INR ABG pCO2 ABG pO2 ABG HCO3 ABG Total CO2 ABG O2 Saturation Sodium 136 L Carbon Dioxide BUN 26 H Glucose 141 H POC Glucose (mg/dL) ALT Urine Protein Trace H Urine Blood Trace H Hyaline Casts 26 H Urine Mucus Rare H 10/22/18 10/22/18 10/22/18 04:15 07:17 09:04 WBC Neutrophils # Lymphocytes # PT 23.2 H INR 2.4 H ABG pCO2 51 H ABG pO2 ABG HCO3 30 H ABG Total CO2 32 H ABG O2 Saturation 97.9 H Sodium Carbon Dioxide BUN Glucose POC Glucose (mg/dL) 184 H ALT Urine Protein Urine Blood Hyaline Casts Urine Mucus 10/22/18 11:57 WBC Neutrophils # Lymphocytes # PT INR ABG pCO2 ABG pO2 ABG HCO3 ABG Total CO2 ABG O2 Saturation Sodium Carbon Dioxide BUN Glucose POC Glucose (mg/dL) 187 H ALT Urine Protein Urine Blood Hyaline Casts Urine Mucus - Diagnostic Findings Chest x-ray: image reviewed (As noted in HPI.) Assessment and Plan Assessment: Impression: 1 acute on chronic hypoxic respiratory failure secondary to acute exacerbation of COPD, purulent tracheobronchitis, and underlying interstitial lung disease. 2 right lung mass, abutting the pleural surface, suspicious for malignancy, being followed on outpatient basis by Dr. hassan. 3 chronic atrial fibrillation 4 benign essential hypertension 5 chronic obstructive pulmonary disease cold stage IV 6 remote history of nicotine dependence 7 hyperlipidemia 8 multiple pulmonary nodules, being followed on outpatient basis 9 chronic cor pulmonale 10 history of a VATS, performed for evaluation of interstitial lung disease. Recommendation: Continue present treatment plan including antibiotics, bronchodilators, steroids, BiPAP, GI and DVT prophylaxis, overall prognosis is extremely poor and guarded. CODE STATUS remains DO NOT RESUSCITATE, patient will be transferred out of the ICU to a monitor bed on selective if available. We'll continue to follow. Again prognosis is extremely poor. Time with Patient: Greater than 30
[2018-10-22] MEDS: MULTIVITAMINS, THERA 1 EACH TAB PO SCH ×2 (13:03→13:06)
[2018-10-22 17:19] LABS: Glucose,Whole Blood 141 mg/dL (75-99)
[2018-10-22 17:30] LABS: Glucose,Whole Blood 150 mg/dL (75-99)
[2018-10-22] MEDS: SODIUM CHLORIDE 0.9% 1,000 ML IV SCH (17:46)
[2018-10-22] MEDS: AZITHROMYCIN 500 MG in SODIUM CHLORIDE 0.9% 250 ML IVPB SCH (17:46)
[2018-10-22] MEDS: WARFARIN 7.5 MG TAB PO SCH (17:47)
--- NOTE | 2018-10-22 18:16 | PN ---
PROGRESS NOTE DATE OF SERVICE: 10/22/2018 This 77-year-old gentleman was admitted with shortness of breath and COPD, acute exacerbation that necessitated BiPAP and transfer to ICU. Dr. Mcdermott and Cardiology are following the patient closely. Two-D echo with Doppler patient also had right lung mass in the pleural surface suspicious for malignancy which has been followed outpatient by Dr. Hassan. Past medical history reviewed. REVIEW OF SYSTEMS: CARDIOVASCULAR SYSTEM: No angina, palpitations. RESPIRATORY SYSTEM: As mentioned earlier. GI: As mentioned earlier. : No dysuria or retention. NERVOUS SYSTEM: No numbness, weakness. CURRENT MEDICATIONS: Reviewed. They include: 1. [place] 5 mg q.6 p.r.n. 2. DuoNeb q.i.d. and p.r.n. 3. Zithromax 500 mg IV daily. 4. Pulmicort 1 mg b.i.d. 5. Rocephin 1 gram daily. 6. Perforomist. 7. Lasix. 8. NovoLog. 9. Ativan. 10.Solu-Medrol. 11.Lopressor. 12.Multivitamins. 13.Narcan. 14.Protonix. 15.Coumadin. Dosages reviewed. PHYSICAL EXAMINATION: Patient is alert, oriented x2. Patient is on BiPAP. Pulse 94, blood pressure 138/101, respiration 31, temperature normal, pulse ox 95% on 30% BiPAP. BiPAP settings are noted. HEENT: Conjunctivae normal. Oral mucosa moist. Breathing efforts are markedly increased. Accessory muscles of respiration are also acting. The patient is unable to speak, obviously because of the BiPAP application. CARDIOVASCULAR SYSTEM: S1, S2 muffled. No S3. No S4. RESPIRATORY SYSTEM: Breath sounds diminished at the bases. A few scattered rhonchi and crackles. Expiratory wheezing ABDOMEN: Soft, obese, nontender. LEGS: No edema. No swelling. NERVOUS SYSTEM: No focal deficit. LABS: WBC 16.4. INR 2.4. Sodium 136. Glucose noted. Influenza negative. ASSESSMENT: 1. Chronic obstructive pulmonary disease exacerbation, acute exacerbation, with acute purulent tracheobronchitis and bronchopneumonia. 2. Increased pleural thickening of the right side with possible malignancy, with outpatient followup. 3. Acute hypoxic respiratory failure, status post BiPAP. 4. History of chronic atrial fibrillation. 5. Hypertension. 6. History of pneumonia. 7. History of macular degeneration. 8. Chronic hypoxic respiratory failure. 9. Remote history of nicotine dependence. 10.Left foot pain. 11.Obesity with body mass index of 35.4. 12.NO CODE, NO CPR, NO VENT. RECOMMENDATIONS AND DISCUSSION: I recommend to continue current medications, continue with the monitoring, symptomatic treatment. Continue the bronchodilators. Continue the rest of the medications. Continue with empiric antibiotics, steroids. Monitor closely. are negative. Closely follow with Dr. Mcdermott. Prognosis guarded. Further recommendations to follow. MMODL / IJN: [id number] / MTDD
[2018-10-22 21:10] LABS: Glucose,Whole Blood 152 mg/dL (75-99)
[2018-10-23] MEDS: methylPREDNISolone SOD SUCCI 125 MG/2 ML VIAL IV SCH ×5 (00:18→22:22)
[2018-10-23] MEDS: LORazepam 2 MG/ML INJ IV PRN ×2 (00:19→03:46)
[2018-10-23 04:46] LABS: HCT 42.6 % (39.0-53.0); HGB 13.4 gm/dL (13.0-17.5); MCH 30.4 pg (25.0-35.0); MCHC 31.6 g/dL (31.0-37.0); MCV 96.2 fL (80.0-100.0); Platelet Count 223 k/uL (150-450); RBC 4.43 m/uL (4.30-5.90); RDW 13.6 % (11.5-15.5); WBC 26.9 k/uL (3.8-10.6)
[2018-10-23 04:55] LABS: INR 3.1 (<1.2); Prothrombin Time 30.3 sec (9.0-12.0)
[2018-10-23 05:03] LABS: Blood Urea Nitrogen 38 mg/dL (9-20); Calcium 9.3 mg/dL (8.4-10.2); Carbon Dioxide 28 mmol/L (22-30); Glucose 141 mg/dL (74-99)
[2018-10-23 05:07] LABS: Potassium 4.5 mmol/L (3.5-5.1); Sodium 138 mmol/L (137-145)
[2018-10-23 05:14] LABS: Anion Gap 8 mmol/L; Chloride 102 mmol/L (98-107)
[2018-10-23 05:27] LABS: Lymphocytes # (M) 9.95 k/uL (1.0-4.8); Monocytes # (M) 0.54 k/uL (0-1.0); Neutrophils # (M) 16.41 k/uL (1.3-7.7); Neutrophils % (M) 61 %; Nucleated Red Blood Cells 0 /100 WBC (0-0); Total Cells Counted 100
[2018-10-23 07:09] LABS: Glucose,Whole Blood 138 mg/dL (75-99)
--- NOTE | 2018-10-23 07:17 | XR ---
EXAMINATION TYPE: XR chest 1V portable DATE OF EXAM: 10/23/2018 Comparison: 10/22/2018 Clinical History: 78-year-old male pulmonary fibrosis Findings: Heart remains borderline to mildly enlarged. Focal pleural-based opacity lateral mid to lower right h emithorax. Diffuse interstitial changes and hyperinflation persists with patchy right basilar opacity . Impression: Similar changes of COPD and borderline to mild cardiomegaly. Otherwise, stable pleural-based density along the peripheral right mid to lower lung.
--- NOTE | 2018-10-23 07:50 | P.PN ---
Subjective Progress Note Date: 10/23/18 Principal diagnosis: Chronic atrial fibrillation This is a 77-year-old gentleman with a past medical history significant for chronic hypoxic respiratory failure secondary to COPD as well as pulmonary fibrosis, the patient does follow with the lens inspector on regular basis, hist ory of chronic persistent atrial fibrillation on oral anticoagulation was Coumadin, hypertension, as well as obesity, was transferred to the hospital from [facility] with shortness of breath. The patient presented to [facility] with difficulty breathing and he was started on BiPAP. Subsequently he was transferred to [facility] for further evaluation and initially he was admitted to the medical floor. He gets more short of breath on the floor and he was transferred to the intensive care unit. The patient overall is a poor historian and currently he is on BiPAP. No symptoms of chest pain or chest discomfort, dizziness, heart racing, or syncope. No history of coronary artery disease according to him. No history of congestive heart failure. He does have chronic atrial fibrillation and he is maintaining oral anticoagulation was Coumadin as well as he is on metoprolol for heart rate control. On follow-up with the patient today, October [id number], the patient does have change in mental status and he is confused as well as agitated. Hemodynamically, he is stable. He continues to be in atrial fibrillation with slightly uncontrolled heart rate which is likely related to the agitation and respiratory distress. I would increase the dose of metoprolol 100 mg by mouth twice a day. He continues to be on oral anticoagulation was Coumadin. He underwent an echocardiogram which revealed normal LV function was mild MR, mild TR, and moderate pulmonary h ypertension. Objective - Vital Signs Vital signs: Vital Signs Temp 97.5 F L 10/23/18 04:00 Pulse 114 H 10/23/18 04:00 Resp 32 H 10/23/18 04:00 BP 142/71 10/23/18 04:00 Pulse Ox 96 10/23/18 04:00 Intake & Output 10/22/18 10/23/18 10/23/18 18:59 06:59 18:59 Intake Total 1080 200 Output Total 606 425 Balance 474 -225 Weight 119 kg 120 kg Intake: IV 490 200 Azithromycin 500 mg In 250 Sodium Chloride 0.9% 250 ml @ 250 mls/hr IVPB DAILY@1800 [facility] Rx#: [id number] Sodium Chloride 0.9% 1, 240 200 000 ml @ 20 mls/hr IV . Q24H [facility] Rx#:[id number] Intake, IV Titration 50 Amount cefTRIAXone 1 gm In 50 Sodium Chloride 0.9% 50 ml @ 100 mls/hr IVPB Q24HR [facility] Rx#:[id number] Oral 540 Output: Urine 606 425 Other: Voiding Method Indwelling Catheter Indwelling Catheter - Constitutional General appearance: Present: no acute distress - Respiratory Respiratory: bilateral: wheezing - Cardiovascular Rhythm: irregularly irregular Heart sounds: normal: S1, S2 Abnormal Heart Sounds: Present: systolic murmur - Labs CBC & Chem 7: 10/23/18 04:22 10/23/18 04:22 Labs: Abnormal Lab Results - Last 24 Hours (Table) 10/22/18 10/22/18 10/22/18 Range/Units 09:04 11:57 17:07 WBC (3.8-10.6) k/uL Neutrophils # (Manual) (1.3-7.7) k/uL Lymphocytes # (Manual) (1.0-4.8) k/uL PT (9.0-12.0) sec INR (<1.2) ABG pCO2 51 H (35-45) mmHg ABG HCO3 30 H (21-25) mmol/L ABG Total CO2 32 H (19-24) mmol/L ABG O2 Saturation 97.9 H (94-97) % BUN (9-20) mg/dL Glucose (74-99) mg/dL POC Glucose (mg/dL) 187 H 141 H (75-99) mg/dL 10/22/18 10/22/18 10/23/18 Range/Units 17:19 20:59 04:22 WBC 26.9 H (3.8-10.6) k/uL Neutrophils # (Manual) 16.41 H (1.3-7.7) k/uL Lymphocytes # (Manual) 9.95 H (1.0-4.8) k/uL PT (9.0-12.0) sec INR (<1.2) ABG pCO2 (35-45) mmHg ABG HCO3 (21-25) mmol/L ABG Total CO2 (19-24) mmol/L ABG O2 Saturation (94-97) % BUN (9-20) mg/dL Glucose (74-99) mg/dL POC Glucose (mg/dL) 150 H 152 H (75-99) mg/dL 10/23/18 10/23/18 10/23/18 Range/Units 04:22 04:22 06:58 WBC (3.8-10.6) k/uL Neutrophils # (Manual) (1.3-7.7) k/uL Lymphocytes # (Manual) (1.0-4.8) k/uL PT 30.3 H (9.0-12.0) sec INR 3.1 H (<1.2) ABG pCO2 (35-45) mmHg ABG HCO3 (21-25) mmol/L ABG Total CO2 (19-24) mmol/L ABG O2 Saturation (94-97) % BUN 38 H (9-20) mg/dL Glucose 141 H (74-99) mg/dL POC Glucose (mg/dL) 138 H (75-99) mg/dL Assessment and Plan Assessment: Assessment #1 acute on chronic hypoxic respiratory failure #2 COPD exacerbation #3 possible pneumonia #4 chronic persistent atrial fibrillation #5 multiple comorbid conditions Plan #1 increase the metoprolol dose 100 mg by mouth twice a day #2 continue oral anticoagulation was Coumadin #3 follow-up with the patient Thank you for allowing us participate in the care of the patient and we will continue following up with him
[2018-10-23] MEDS: IPRATROPIUM-ALBUTEROL 3 ML NEB INHALATION SCH ×4 (07:55→19:59)
[2018-10-23] MEDS: BUDESONIDE 1 MG/2 ML NEBU INHALATION SCH ×2 (07:55→19:59)
[2018-10-23] MEDS: FORMOTEROL FUMARATE 20 MCG/2 ML NEBU INHALATION SCH ×2 (07:55→19:59)
[2018-10-23] MEDS: INSULIN ASPART (NovoLOG) 100 UNIT/ML VIAL SQ SCH ×4 (08:07→22:23)
[2018-10-23] MEDS: PANTOPRAZOLE 40 MG TABLET PO SCH (09:05)
[2018-10-23] MEDS: METOPROLOL TARTRATE 50 MG TAB PO SCH ×2 (09:06→22:22)
[2018-10-23] MEDS: amLODIPine 5 MG TAB PO SCH ×2 (09:06→22:22)
[2018-10-23] MEDS: FUROSEMIDE 40 MG TAB PO SCH ×2 (09:07→18:17)
[2018-10-23 10:00] VITALS: BMI 34.0
--- NOTE | 2018-10-23 10:23 | P.PN ---
Subjective Progress Note Date: 10/23/18 Principal diagnosis: Acute on chronic hypoxic respiratory failure secondary to COPD exacerbation and underlying interstitial lung disease. This is a 77-year-old white male with history of multiple medical problems including severe COPD called stage IV, interstitial lung disease, and multiple pulmonary nodules with abnormal PET scan done in the last 6 months reflecting a suspicious right midlung mass, strongly suspicious for malignancy. Patient is O2 dependent, he normally sees Dr. Hassan in the office on a regular basis. Patient is also known to have history of atrial fibrillation, macular degeneration, brought into the hospital with a few days' history of increased shortness of breath, cough, wheezing. He was initially seen at [facility], required to be placed on BiPAP, and his condition remains marginal. Patient was transferred as a direct admit to [facility], and shortly after he arrived, I was notified by the nurse taking care of the patient that he wasn't doing well. Patient was in moderate severe respiratory distress, ABG on the medical floor showed a pO2 of 210 pCO2 of 42 pH of 7.43. Patient was placed on BiPAP, transferred to the intensive care unit, and repeat ABG this morning showed a pO2 of 107 pCO2 of 51 pH of 7.39. Patient was already started on bronchodilators, steroids, empiric antibiotics, steroids, and follow-up chest x-ray showed increased density in the right midlung pleural margin, strongly suspicious for neoplasm. It also showed interstitial changes suggestive of underlying interstitial lung disease. Patient had a DO NOT RESUSCITATE CODE STATUS, shortly after I evaluated the patient, and reviewed his ABG, recommended that the patient could be placed back on a monitor bed on selective. In the meantime I will continue his treatment plan including bronchodilators, antibiotics, steroids, and he was already seen by cardiology for his chronic atrial fibrillation. Patient is an extremely poor historian. Patient was reevaluated today on 10/23/2018, he was still in the ICU at the time of my evaluation, patient remains on BiPAP, IPAP of 12 and EPAP of 6, FiO2 of 30%. Patient remains obtunded, almost BiPAP dependent, arousable, but does not follow much instructions. Obviously the patient is not making any significant improvement since admission. Patient is maximized on treatment including BiPAP, bronchodilators, steroids, antibiotics, and I have a feeling that the patient is not going to do well overall. CODE STATUS remains DO NOT RESUSCITATE, I believe it is best to approach the family at one point regarding comfort care measures. My understanding family was approached already before he was transferred to the ICU, but still reluctant to go with comfort care measures. And he remains DO NOT RESUSCITATE as per his own wishes. Today I will continue the same medications, continue BiPAP, continue bronchodilators antibiotics and steroids, and I will transfer the patient out of the ICU to a monitor bed on selective. Objective - Vital Signs Vital signs: Vital Signs Temp 97.5 F L 10/23/18 04:00 Pulse 134 H 10/23/18 09:00 Resp 36 H 10/23/18 09:00 BP 127/88 10/23/18 09:00 Pulse Ox 93 L 10/23/18 09:00 Intake & Output 10/22/18 10/23/18 10/23/18 18:59 06:59 18:59 Intake Total 1080 200 120 Output Total 606 425 125 Balance 474 -225 -5 Weight 119 kg 120 kg 120 kg Intake: IV 490 200 70 Azithromycin 500 mg In 250 Sodium Chloride 0.9% 250 ml @ 250 mls/hr IVPB DAILY@1800 [facility] Rx#: [id number] Sodium Chloride 0.9% 1, 240 200 20 000 ml @ 20 mls/hr IV . Q24H [facility] Rx#:[id number] cefTRIAXone 1 gm In 50 Sodium Chloride 0.9% 50 ml @ 100 mls/hr IVPB Q24HR [facility] Rx#:[id number] Intake, IV Titration 50 Amount cefTRIAXone 1 gm In 50 Sodium Chloride 0.9% 50 ml @ 100 mls/hr IVPB Q24HR [facility] Rx#:[id number] Oral 540 50 Output: Urine 606 425 125 Other: Voiding Method Indwelling Catheter Indwelling Catheter Indwelling Catheter - Exam Physical Exam: Revealed a 77-year-old white male, in moderate respiratory distress, on BiPAP. Arousable, but seems to be confused. Head: Atraumatic, normocephalic. HEENT:[Neck is supple.] [No neck masses.] [No thyromegaly.] [No JVD.] PERRLA, EOMI, no icterus. Chest: Bilateral scattered rhonchi and wheezes, no evidence of chest retraction. Symmetrical chest expansion. Cardiac Exam: Irregular irregular rhythm. [Normal S1 and S2, no S3 gallop, no murmur.] Abdomen: [Soft, nontender, no megaly, no rebound, no guarding, normal bowel sounds.] Extremities: [No clubbing, no edema, no cyanosis.] Neurological Exam: [Confused, follows simple instructions, no gross focal deficit otherwise. Skin: No rashes. Lymphatics: No lymphadenopathy. Musculoskeletal: No limitation in range of motion, no deformities. - Labs CBC & Chem 7: 10/23/18 04:22 10/23/18 04:22 Labs: Abnormal Lab Results - Last 24 Hours (Table) 10/22/18 10/22/18 10/22/18 Range/Units 11:57 17:07 17:19 WBC (3.8-10.6) k/uL Neutrophils # (Manual) (1.3-7.7) k/uL Lymphocytes # (Manual) (1.0-4.8) k/uL PT (9.0-12.0) sec INR (<1.2) BUN (9-20) mg/dL Glucose (74-99) mg/dL POC Glucose (mg/dL) 187 H 141 H 150 H (75-99) mg/dL 10/22/18 10/23/18 10/23/18 Range/Units 20:59 04:22 04:22 WBC 26.9 H (3.8-10.6) k/uL Neutrophils # (Manual) 16.41 H (1.3-7.7) k/uL Lymphocytes # (Manual) 9.95 H (1.0-4.8) k/uL PT (9.0-12.0) sec INR (<1.2) BUN 38 H (9-20) mg/dL Glucose 141 H (74-99) mg/dL POC Glucose (mg/dL) 152 H (75-99) mg/dL 10/23/18 10/23/18 Range/Units 04:22 06:58 WBC (3.8-10.6) k/uL Neutrophils # (Manual) (1.3-7.7) k/uL Lymphocytes # (Manual) (1.0-4.8) k/uL PT 30.3 H (9.0-12.0) sec INR 3.1 H (<1.2) BUN (9-20) mg/dL Glucose (74-99) mg/dL POC Glucose (mg/dL) 138 H (75-99) mg/dL Assessment and Plan Assessment: Impression: 1 acute on chronic hypoxic respiratory failure secondary to acute exacerbation of COPD, purulent tracheobronchitis, and underlying interstitial lung disease. 2 right lung mass, abutting the pleural surface, suspicious for malignancy, being followed on outpatient basis by Dr. hassan. 3 chronic atrial fibrillation 4 benign essential hypertension 5 chronic obstructive pulmonary disease cold stage IV 6 remote history of nicotine dependence 7 hyperlipidemia 8 multiple pulmonary nodules, being followed on outpatient basis 9 chronic cor pulmonale 10 history of a VATS, performed for evaluation of interstitial lung disease. Recommendation: Continue present treatment plan including antibiotics, bronchodilators, steroids, BiPAP, GI and DVT prophylaxis, will transfer the patient out of the ICU today, prognosis is extremely poor and guarded, family will have to be approached again regarding comfort care measures and possibly hospice. Time with Patient: Less than 30
[2018-10-23 11:38] LABS: Glucose,Whole Blood 138 mg/dL (75-99)
[2018-10-23] MEDS: MULTIVITAMINS, THERA 1 EACH TAB PO SCH (12:44)
[2018-10-23 16:25] LABS: Glucose,Whole Blood 170 mg/dL (75-99)
[2018-10-23] MEDS ORDERED: WARFARIN 7.5 MG TAB PO SCH (18:00)
--- NOTE | 2018-10-23 18:01 | PN ---
PROGRESS NOTE DATE OF SERVICE: 10/23/2018 This 77-year-old gentleman who was admitted with COPD exacerbation also had acute respiratory failure. Patient is on enough BiPAP at this time. The patient also had a stable pleural-based density along the peripheral right lung, which is for Dr. Hassan in the outpatient setting. The patient also had some confusion also. Patient closely monitored. Dr. Mcdermott is following the patient closely. Cardiology is also following the patient. PAST MEDICAL HISTORY: Reviewed. REVIEW OF SYSTEMS: Review of systems could not be taken. The patient is on BiPAP and slightly drowsy at this time. CURRENT MEDICATIONS ARE: 1. [place] 5 mg q.6h p.r.n. 2. DuoNeb q.i.d. and p.r.n. 3. Norvasc. 4. Zithromax 500 mg daily. 5. Pulmicort. 6. Rocephin 1 g daily. 7. Perforomist 20 mg b.i.d. 8. Lasix 40 mg p.o. b.i.d. 9. Solu-Medrol 60 IV q.6. 10.Lopressor 100 mg b.i.d. 11.Multivitamins. 12.Narcan. 13.Protonix. 14.Coumadin 3.75. PHYSICAL EXAM: Patient is mildly confused. Pulse is 134, blood pressure 127/80, respiration 36, temperature is normal. Pulse ox 96% on 3 L. HEENT is conjunctivae normal. Oral mucosa moist. NECK is no jugular venous distention. No carotid bruit. No lymph node enlargement. CARDIOVASCULAR: S1, S2 muffled. No S3, no S4. RESPIRATORY: Breath sounds diminished in the bases. Bilateral scattered rhonchi and crackles. ABDOMEN: Soft, obese, nontender. No mass palpable. LEGS: No edema. No swelling. NERVOUS SYSTEM: Higher functions as mentioned earlier. Moves all 4 limbs. No focal motor or sensory deficits. Lymphatics: No lymph nodes palpable in the neck, axillae or groin. SKIN: No ulcer, rash or bleeding. JOINTS: No active deforming arthropathy. LABS: WBC 26.9, hemoglobin 13.4, glucose 138. ASSESSMENT: 1. Chronic obstructive pulmonary disease exacerbation with acute purulent tracheobronchitis and possible bronchopneumonia. 2. Increased pleural thickening of the right side with possible malignancy for outpatient followup by Dr. Hassan. 3. Change in mental status, metabolic encephalopathy, possibly multifactorial. 4. Acute hypoxic respiratory failure status post BiPAP. 5. Possible underlying interstitial lung disease with pulmonary fibrosis. 6. History of chronic atrial fibrillation. 7. Hypertension. 8. History of pneumonia. 9. History of macular degeneration. 10.History of chronic hypoxic respiratory failure. 11.Remote history of nicotine dependence. 12.Left foot pain. 13.Obesity with body mass index of 35.4. 14.NO CODE, NO CPR, NO VENT. RECOMMENDATIONS AND DISCUSSION: Recommend to continue current medications, management and symptomatic treatment. Continue the bronchodilators. Continue steroids. Continue with empiric antibiotics. The patient is on and off BiPAP at this time. Dr. Mcdermott is also recommended to consider discussion about palliative and hospice. We will provide some information to the family and continue to monitor. Otherwise, discussed with the machine adjuster leader case trim. Further recommendations to follow. Prognosis guarded. MMODL / IJN: [id number] /
[2018-10-23] MEDS: AZITHROMYCIN 500 MG in SODIUM CHLORIDE 0.9% 250 ML IVPB SCH (18:16)
[2018-10-23] MEDS: SODIUM CHLORIDE 0.9% 1,000 ML IV SCH (18:31)
[2018-10-23 21:31] LABS: Glucose,Whole Blood 192 mg/dL (75-99)
[2018-10-24] MEDS: IPRATROPIUM-ALBUTEROL 3 ML NEB INHALATION PRN (03:51)
[2018-10-24 06:41] LABS: Glucose,Whole Blood 169 mg/dL (75-99)
[2018-10-24] MEDS: INSULIN ASPART (NovoLOG) 100 UNIT/ML VIAL SQ SCH ×4 (06:52→21:21)
[2018-10-24] MEDS: methylPREDNISolone SOD SUCCI 125 MG/2 ML VIAL IV SCH ×4 (06:52→23:24)
[2018-10-24] MEDS: PANTOPRAZOLE 40 MG TABLET PO SCH (06:53)
[2018-10-24 07:06] LABS: HCT 40.5 % (39.0-53.0); HGB 12.8 gm/dL (13.0-17.5); MCH 30.6 pg (25.0-35.0); MCHC 31.7 g/dL (31.0-37.0); MCV 96.5 fL (80.0-100.0); Mean Platelet Volume 7.8; Platelet Count 216 k/uL (150-450); RBC 4.19 m/uL (4.30-5.90); RDW 13.3 % (11.5-15.5); WBC 23.9 k/uL (3.8-10.6)
[2018-10-24 07:10] LABS: INR 3.6 (<1.2); Prothrombin Time 34.6 sec (9.0-12.0)
[2018-10-24 07:20] LABS: Sodium 140 mmol/L (137-145)
[2018-10-24 07:23] LABS: Anion Gap 2 mmol/L; Blood Urea Nitrogen 37 mg/dL (9-20); Calcium 9.1 mg/dL (8.4-10.2); Carbon Dioxide 36 mmol/L (22-30); Chloride 102 mmol/L (98-107); Glucose 156 mg/dL (74-99)
[2018-10-24] MEDS: amLODIPine 5 MG TAB PO SCH ×2 (08:34→21:21)
[2018-10-24] MEDS: METOPROLOL TARTRATE 50 MG TAB PO SCH ×2 (08:34→21:21)
[2018-10-24] MEDS: FUROSEMIDE 40 MG TAB PO SCH ×2 (08:34→15:21)
[2018-10-24] MEDS: BUDESONIDE 1 MG/2 ML NEBU INHALATION SCH ×2 (09:14→21:04)
[2018-10-24] MEDS: IPRATROPIUM-ALBUTEROL 3 ML NEB INHALATION SCH ×4 (09:14→21:04)
[2018-10-24] MEDS: FORMOTEROL FUMARATE 20 MCG/2 ML NEBU INHALATION SCH ×2 (09:14→21:04)
--- NOTE | 2018-10-24 10:21 | P.PN ---
Subjective 78-year-old pleasant gentleman with history of COPD course stage IV interstitial lung disease and multiple pulmonary nodules strongly suspicious for malignancy. Patient is on BiPAP at this time. Patient is comfortable on BiPAP. Although there is minimally elevated entry into bilateral lung crespo. Patient is appropriate for hospice will discuss with the family and patient tomorrow regarding this. Constitutional: Denied any fatigue denied any fever. Cardio vascular: denied any chest pain, palpitations Gastrointestinal denied any nausea vomiting Pulmonary: In use to have shortness of breath Neurologic denied any new focal deficits All inpatient medications were reviewed and appropriate changes in these medications as dictated in the interval history and assessment and plan. Objective - Vital Signs Vital signs: Vital Signs Temp 98.7 F 10/24/18 08:00 Pulse 80 10/24/18 09:40 Resp 20 10/24/18 08:30 BP 146/81 10/24/18 08:00 Pulse Ox 95 10/24/18 08:30 Intake & Output 10/23/18 10/24/18 10/24/18 18:59 06:59 18:59 Intake Total 600 Output Total 825 350 Balance -225 -350 Weight 120 kg 121 kg Intake: IV 70 Sodium Chloride 0.9% 1, 20 000 ml @ 20 mls/hr IV . Q24H [facility] Rx#:[id number] cefTRIAXone 1 gm In 50 Sodium Chloride 0.9% 50 ml @ 100 mls/hr IVPB Q24HR [facility] Rx#:[id number] Oral 530 Output: Urine 825 350 Other: Voiding Method Indwelling Catheter Indwelling Catheter Urinal # Voids 1 # Bowel Movements 0 0 - Exam PHYSICAL EXAMINATION: GENERAL: The patient is alert and oriented x3, not in any acute distress. Well developed, well nourished. BiPAP not in respiratory distress on BiPAP HEENT: Pupils are round and equally reacting to light. EOMI. No scleral icterus. No conjunctival pallor. Normocephalic, atraumatic. No pharyngeal erythema. No thyromegaly. CARDIOVASCULAR: S1 and S2 present. No murmurs, rubs, or gallops. PULMONARY: Decreased air entry into bilateral lung crespo. ABDOMEN: Soft, nontender, nondistended, normoactive bowel sounds. No palpable organomegaly. MUSCULOSKELETAL: No joint swelling or deformity. EXTREMITIES: No cyanosis, clubbing, or pedal edema. NEUROLOGICAL: Gross neurological examination did not reveal any focal deficits. SKIN: No rashes. - Labs CBC & Chem 7: 10/24/18 06:39 10/24/18 06:39 Labs: Abnormal Lab Results - Last 24 Hours (Table) 10/23/18 10/23/18 10/23/18 Range/Units 11:37 16:24 21:29 WBC (3.8-10.6) k/uL RBC (4.30-5.90) m/uL Hgb (13.0-17.5) gm/dL PT (9.0-12.0) sec INR (<1.2) Carbon Dioxide (22-30) mmol/L BUN (9-20) mg/dL Glucose (74-99) mg/dL POC Glucose (mg/dL) 138 H 170 H 192 H (75-99) mg/dL 10/24/18 10/24/18 10/24/18 Range/Units 06:39 06:39 06:39 WBC 23.9 H (3.8-10.6) k/uL RBC 4.19 L (4.30-5.90) m/uL Hgb 12.8 L (13.0-17.5) gm/dL PT 34.6 H (9.0-12.0) sec INR 3.6 H (<1.2) Carbon Dioxide 36 H (22-30) mmol/L BUN 37 H (9-20) mg/dL Glucose 156 H (74-99) mg/dL POC Glucose (mg/dL) (75-99) mg/dL 10/24/18 Range/Units 06:39 WBC (3.8-10.6) k/uL RBC (4.30-5.90) m/uL Hgb (13.0-17.5) gm/dL PT (9.0-12.0) sec INR (<1.2) Carbon Dioxide (22-30) mmol/L BUN (9-20) mg/dL Glucose (74-99) mg/dL POC Glucose (mg/dL) 169 H (75-99) mg/dL Assessment and Plan Plan: Acute on chronic hypoxic as well as hypercapnic respiratory failure secondary to COPD exacerbation and underlying interstitial lung disease: To continue with systemic steroids inhalational treatments BiPAP for support and wean off as tolerated -Trachea bronchitis for which patient is on antibiotics Rocephin which will be continued -Right lung mass highly suspicious for malignancy considering his age and other comorbidities probably not worth further pursuing this mass come -Chronic atrial fibrillation presently rate controlled him a patient is on Coumadin for anticoagulation hold off on Coumadin INR is supratherapeutic because of antibiotics and systemic steroids interaction with Coumadin. -Essential hypertension -COPD and chronic hypercapnic respiratory failure secondary to that -Hyperlipidemia -Cor pulmonale chronic His overall prognosis is extremely poor will discuss with the family regarding comfort care and hospice can string his age other, other comorbid conditions like advanced COPD and interstitial lung disease
[2018-10-24 11:01] LABS: Lymphocytes # (M) 7.17 k/uL (1.0-4.8); Monocytes # (M) 0.72 k/uL (0-1.0); Neutrophils # (M) 16.01 k/uL (1.3-7.7); Neutrophils % (M) 67 %; Nucleated Red Blood Cells 0 /100 WBC (0-0); Total Cells Counted 100
[2018-10-24 12:01] LABS: Glucose,Whole Blood 155 mg/dL (75-99)
[2018-10-24] MEDS: MULTIVITAMINS, THERA 1 EACH TAB PO SCH (12:49)
--- NOTE | 2018-10-24 13:29 | P.PN ---
Subjective Progress Note Date: 10/24/18 This is a 77-year-old gentleman with a past medical history significant for chronic hypoxic respiratory failure secondary to COPD as well as pulmonary fibrosis, the patient does follow with the edi consultant on regular basis, history of chronic persistent atrial fibrillation on oral anticoagulation was Co umadin, hypertension, as well as obesity, was transferred to the hospital from [facility] with shortness of breath. The patient presented to [facility] with difficulty breathing and he was started on BiPAP. Subsequently he was transferred to [facility] for further evaluation and initially he was admitted to the medical floor. He gets more short of breath on the floor and he was transferred to the intensive care unit. The patient overall is a poor historian and currently he is on BiPAP. No symptoms of chest pain or chest discomfort, dizziness, heart racing, or syncope. No history of coronary artery disease according to him. No history of congestive heart failure. He does have chronic atrial fibrillation and he is maintaining oral anticoagulation was Coumadin as well as he is on metoprolol for heart rate control. Overall his heart rate has been controlled but every time he goes into respiratory distress the heart rate goes up to above 100 beats per minutes. The chest x-ray showed findings consistent with COPD as well as pulmonary fibrosis. We don't have 12 EKG on him at this point. He is on Coumadin and the INR appeared to be therapeutic. Currently the patient also is on steroid as well as he is on antibiotic. 10/24/2018 Patient was seen and examined this morning, states that he didn't sleep well last night and overall feels miserable. Continues to be in A. fib with a controlled ventricular response. INR today is 3.6. Blood pressure 130/82 with a heart rate of 90, 95% on 30% BiPAP. White blood cell count 23.9, hemoglobin 12.8, platelet count 216. Sodium 140, potassium 4.0, BUN 37 and creatinine 0.8. Objective - Vital Signs Vital signs: Vital Signs Temp 98.7 F 10/24/18 08:00 Pulse 84 10/24/18 12:39 Resp 28 H 10/24/18 12:00 BP 130/83 10/24/18 11:07 Pulse Ox 95 10/24/18 11:07 Intake & Output 10/23/18 10/24/18 10/24/18 18:59 06:59 18:59 Intake Total 600 240 Output Total 825 350 450 Balance -225 -350 -210 Weight 120 kg 121 kg Intake: IV 70 Sodium Chloride 0.9% 1, 20 000 ml @ 20 mls/hr IV . Q24H [facility] Rx#:[id number] cefTRIAXone 1 gm In 50 Sodium Chloride 0.9% 50 ml @ 100 mls/hr IVPB Q24HR [facility] Rx#:[id number] Oral 530 240 Output: Urine 825 350 450 Other: Voiding Method Indwelling Catheter Indwelling Catheter Urinal # Voids 1 1 # Bowel Movements 0 0 1 - Exam Physical Exam: Revealed a 77-year-old white male, in moderate respiratory distress, on BiPAP. Arousable, but seems to be confused. Head: Atraumatic, normocephalic. HEENT:[Neck is supple.] [No neck masses.] [No thyromegaly.] [No JVD.] PERRLA, EOMI, no icterus. Chest: Bilateral scattered rhonchi and wheezes, no evidence of chest retraction. Symmetrical chest expansion. Cardiac Exam: Irregular irregular rhythm. [Normal S1 and S2, no S3 gallop, no murmur.] Abdomen: [Soft, nontender, no megaly, no rebound, no guarding, normal bowel sounds.] Extremities: [No clubbing, no edema, no cyanosis.] Neurological Exam: [Confused, follows simple instructions, no gross focal deficit otherwise. Skin: No rashes. Lymphatics: No lymphadenopathy. Musculoskeletal: No limitation in range of motion, no deformities. - Labs CBC & Chem 7: 10/24/18 06:39 10/24/18 06:39 Labs: Abnormal Lab Results - Last 24 Hours (Table) 10/23/18 10/23/18 10/24/18 Range/Units 16:24 21:29 06:39 WBC 23.9 H (3.8-10.6) k/uL RBC 4.19 L (4.30-5.90) m/uL Hgb 12.8 L (13.0-17.5) gm/dL Neutrophils # (Manual) 16.01 H (1.3-7.7) k/uL Lymphocytes # (Manual) 7.17 H (1.0-4.8) k/uL PT (9.0-12.0) sec INR (<1.2) Carbon Dioxide (22-30) mmol/L BUN (9-20) mg/dL Glucose (74-99) mg/dL POC Glucose (mg/dL) 170 H 192 H (75-99) mg/dL 10/24/18 10/24/18 10/24/18 Range/Units 06:39 06:39 06:39 WBC (3.8-10.6) k/uL RBC (4.30-5.90) m/uL Hgb (13.0-17.5) gm/dL Neutrophils # (Manual) (1.3-7.7) k/uL Lymphocytes # (Manual) (1.0-4.8) k/uL PT 34.6 H (9.0-12.0) sec INR 3.6 H (<1.2) Carbon Dioxide 36 H (22-30) mmol/L BUN 37 H (9-20) mg/dL Glucose 156 H (74-99) mg/dL POC Glucose (mg/dL) 169 H (75-99) mg/dL 10/24/18 Range/Units 11:58 WBC (3.8-10.6) k/uL RBC (4.30-5.90) m/uL Hgb (13.0-17.5) gm/dL Neutrophils # (Manual) (1.3-7.7) k/uL Lymphocytes # (Manual) (1.0-4.8) k/uL PT (9.0-12.0) sec INR (<1.2) Carbon Dioxide (22-30) mmol/L BUN (9-20) mg/dL Glucose (74-99) mg/dL POC Glucose (mg/dL) 155 H (75-99) mg/dL Assessment and Plan Plan: Impression and plan: 1 acute on chronic hypoxic respiratory failure secondary to acute exacerbation of COPD, purulent tracheobronchitis, and underlying interstitial lung disease. 2 right lung mass, abutting the pleural surface, suspicious for malignancy, being followed on outpatient basis by Dr. childress. 3 chronic atrial fibrillation 4 benign essential hypertension 5 chronic obstructive pulmonary disease cold stage IV 6 remote history of nicotine dependence 7 hyperlipidemia 8 multiple pulmonary nodules, being followed on outpatient basis 9 chronic cor pulmonale 10 history of a VATS, performed for evaluation of interstitial lung disease. Plan From cardiology's perspective, we'll continue to follow this patient along with you now on an as-needed basis only, please don't hesitate to call with any questions. DNP note has been reviewed, I agree with a documented findings and plan of care. Patient was seen and examined.
--- NOTE | 2018-10-24 16:17 | P.PN ---
Subjective Progress Note Date: 10/24/18 Principal diagnosis: Acute on chronic hypoxic respiratory failure secondary to COPD exacerbation and underlying interstitial lung disease This is a 77-year-old white male with history of multiple medical problems including severe COPD called stage IV, interstitial lung disease, and multiple pulmonary nodules with abnormal PET scan done in the last 6 months reflecting a suspicious right midlung mass, strongly suspicious for malignancy. Patient is O2 dependent, he normally sees Dr. Hassan in the office on a regular basis. Patient is also known to have history of atrial fibrillation, macular degeneration, brought into the hospital with a few days' history of increased shortness of breath, cough, wheezing. He was initially seen at [facility], required to be placed on BiPAP, and his condition remains marginal. Patient was transferred as a direct admit to [facility], and shortly after he arrived, I was notified by the nurse taking care of the patient that he wasn't doing well. Patient was in moderate severe respiratory distress, ABG on the medical floor showed a pO2 of 210 pCO2 of 42 pH of 7.43. Patient was placed on BiPAP, transferred to the intensive care unit, and repeat ABG this morning showed a pO2 of 107 pCO2 of 51 pH of 7.39. Patient was already started on bronchodilators, steroids, empiric antibiotics, steroids, and follow-up chest x-ray showed increased density in the right midlung pleural margin, strongly suspicious for neoplasm. It also showed interstitial changes suggestive of underlying interstitial lung disease. Patient had a DO NOT RESUSCITATE CODE STATUS, shortly after I evaluated the patient, and reviewed his ABG, recommended that the patient could be placed back on a monitor bed on selective. In the meantime I will continue his treatment plan including bronchodilators, antibiotics, steroids, and he was already seen by cardiology for his chronic atrial fibrillation. Patient is an extremely poor historian. Patient was reevaluated today on 10/23/2018, he was still in the ICU at the time of my evaluation, patient remains on BiPAP, IPAP of 12 and EPAP of 6, FiO2 of 30%. Patient remains obtunded, almost BiPAP dependent, arousable, but does not follow much instructions. Obviously the patient is not making any significant improvement since admission. Patient is maximized on treatment including BiPAP, bronchodilators, steroids, antibiotics, and I have a feeling that the patient is not going to do well overall. CODE STATUS remains DO NOT RESUSCITATE, I believe it is best to approach the family at one point regarding comfort care measures. My understanding family was approached already before he was transferred to the ICU, but still reluctant to go with comfort care measures. And he remains DO NOT RESUSCITATE as per his own wishes. Today I will continue the same medications, continue BiPAP, continue bronchodilators antibiotics and steroids, and I will transfer the patient out of the ICU to a monitor bed on selective. On 10/24/2018 patient seen in follow-up on selective care unit, he remains with the most part very much BiPAP dependent, becomes quite dyspneic, wheezy, and r honchorous, he is not bringing up much sputum, he is able to tolerate short breaks from the BiPAP on nasal cannula for meals, but has to return to BiPAP shortly after. Remains very dyspneic with any exertion and even with conversation. He is afebrile, his been maximized the medical treatment, and has made no improvement. CODE STATUS remains a DO NOT RESUSCITATE, we discussed the possibility of proceeding with comfort care measures, and it sounds that the patient himself wants it all to end, and he had made statements to his on multiple occasions before that he did not want to go to the hospital for fear that he would there, does not want to pursue aggressive medical treatment. However the is struggling with the decision, and she wants to continue with supportive care at this time, and at this time she is overriding his wishes. Objective - Vital Signs Vital signs: Vital Signs Temp 97.8 F 10/24/18 15:15 Pulse 92 10/24/18 16:06 Resp 16 10/24/18 15:54 BP 149/67 10/24/18 15:15 Pulse Ox 97 10/24/18 15:15 Intake & Output 10/23/18 10/24/18 10/24/18 18:59 06:59 18:59 Intake Total 600 420 Output Total 825 350 450 Balance -225 -350 -30 Weight 120 kg 121 kg Intake: IV 70 Sodium Chloride 0.9% 1, 20 000 ml @ 20 mls/hr IV . Q24H [facility] Rx#:[id number] cefTRIAXone 1 gm In 50 Sodium Chloride 0.9% 50 ml @ 100 mls/hr IVPB Q24HR [facility] Rx#:[id number] Oral 530 420 Output: Urine 825 350 450 Other: Voiding Method Indwelling Catheter Indwelling Catheter Urinal # Voids 1 1 # Bowel Movements 0 0 1 - Exam GENERAL EXAM: Alert, 78-year-old on BiPAP support, dyspneic with conversation, comfortable in no apparent distress. HEAD: Normocephalic/atraumatic. EYES: Normal reaction of pupils, equal size. Conjunctiva pink, sclera white. NOSE: Clear with pink turbinates. THROAT: No erythema or exudates. NECK: No masses, no JVD, no thyroid enlargement, no adenopathy. CHEST: No chest wall deformity. Symmetrical expansion. LUNGS: Equal air entry with wheezes and rhonchi CVS: Regular rate and rhythm, normal S1 and S2, no gallops, no murmurs, no rubs ABDOMEN: Soft, nontender. No hepatosplenomegaly, normal bowel sounds, no guarding or rigidity. EXTREMITIES: No clubbing, no edema, no cyanosis, 2+ pulses and upper and lower extremities. MUSCULOSKELETAL: Muscle strength and tone normal. SPINE: No scoliosis or deformity SKIN: No rashes CENTRAL NERVOUS SYSTEM: Alert and oriented -3. No focal deficits, tone is normal in all 4 extremities. PSYCHIATRIC: Alert and oriented -3. Appropriate affect. Intact judgment and insight. - Labs CBC & Chem 7: 10/24/18 06:39 10/24/18 06:39 Labs: Abnormal Lab Results - Last 24 Hours (Table) 10/23/18 10/23/18 10/24/18 Range/Units 16:24 21:29 06:39 WBC 23.9 H (3.8-10.6) k/uL RBC 4.19 L (4.30-5.90) m/uL Hgb 12.8 L (13.0-17.5) gm/dL Neutrophils # (Manual) 16.01 H (1.3-7.7) k/uL Lymphocytes # (Manual) 7.17 H (1.0-4.8) k/uL PT (9.0-12.0) sec INR (<1.2) Carbon Dioxide (22-30) mmol/L BUN (9-20) mg/dL Glucose (74-99) mg/dL POC Glucose (mg/dL) 170 H 192 H (75-99) mg/dL 10/24/18 10/24/18 10/24/18 Range/Units 06:39 06:39 06:39 WBC (3.8-10.6) k/uL RBC (4.30-5.90) m/uL Hgb (13.0-17.5) gm/dL Neutrophils # (Manual) (1.3-7.7) k/uL Lymphocytes # (Manual) (1.0-4.8) k/uL PT 34.6 H (9.0-12.0) sec INR 3.6 H (<1.2) Carbon Dioxide 36 H (22-30) mmol/L BUN 37 H (9-20) mg/dL Glucose 156 H (74-99) mg/dL POC Glucose (mg/dL) 169 H (75-99) mg/dL 10/24/18 Range/Units 11:58 WBC (3.8-10.6) k/uL RBC (4.30-5.90) m/uL Hgb (13.0-17.5) gm/dL Neutrophils # (Manual) (1.3-7.7) k/uL Lymphocytes # (Manual) (1.0-4.8) k/uL PT (9.0-12.0) sec INR (<1.2) Carbon Dioxide (22-30) mmol/L BUN (9-20) mg/dL Glucose (74-99) mg/dL POC Glucose (mg/dL) 155 H (75-99) mg/dL Assessment and Plan Plan: Assessment: 1 acute on chronic hypoxic respiratory failure secondary to acute exacerbation o f COPD, purulent tracheobronchitis, and underlying interstitial lung disease. 2 right lung mass, abutting the pleural surface, suspicious for malignancy, being followed on outpatient basis by Dr. hassan. 3 chronic atrial fibrillation 4 benign essential hypertension 5 chronic obstructive pulmonary disease cold stage IV 6 remote history of nicotine dependence 7 hyperlipidemia 8 multiple pulmonary nodules, being followed on outpatient basis 9 chronic cor pulmonale 10 history of a VATS, performed for evaluation of interstitial lung disease. Plan: Patient has made no improvement despite maximized medical treatment, he is very dyspneic, he is very much BiPAP dependent. We'll status remains DO NOT RESUSCITATE, will continue with all current supportive treatment, we discussed the possibility of comfort care today again, we for now she is overriding her 's decisions, and the patient himself does want it all to stop, he wants a pill "to stop all this". We'll continue supportive treatment, prognosis is very poor. Possibility of patient making it out of the hospital this admission is less than 10%. I performed a history & physical examination of the patient and discussed their management with my nurse practitioner, Rachael Blas. I reviewed the nurse practitioner's note and agree with the documented findings and plan of care. Lung sounds are positive for diffuse wheezes throughout the lung crespo. The findings and the impression was discussed with the patient. I attest to the documentation by the nurse practitioner. Time with Patient: Less than 30
[2018-10-24 16:56] LABS: Glucose,Whole Blood 223 mg/dL (75-99)
[2018-10-24] MEDS: AZITHROMYCIN 500 MG in SODIUM CHLORIDE 0.9% 250 ML IVPB SCH (17:20)
[2018-10-24] MEDS: SODIUM CHLORIDE 0.9% 1,000 ML IV SCH (17:26)
[2018-10-24 20:25] LABS: Glucose,Whole Blood 181 mg/dL (75-99)
[2018-10-25] MEDS: IPRATROPIUM-ALBUTEROL 3 ML NEB INHALATION PRN (03:29)
[2018-10-25 06:09] LABS: Glucose,Whole Blood 175 mg/dL (75-99)
[2018-10-25 06:29] VITALS: RESP 24
[2018-10-25] MEDS: PANTOPRAZOLE 40 MG TABLET PO SCH (06:50)
[2018-10-25] MEDS: methylPREDNISolone SOD SUCCI 125 MG/2 ML VIAL IV SCH ×2 (06:50→12:12)
[2018-10-25 06:51] LABS: HCT 41.9 % (39.0-53.0); HGB 13.4 gm/dL (13.0-17.5); MCHC 32.1 g/dL (31.0-37.0); MCV 96.7 fL (80.0-100.0); Mean Platelet Volume 8.1; Platelet Count 199 k/uL (150-450); RBC 4.33 m/uL (4.30-5.90); RDW 14.1 % (11.5-15.5); WBC 20.3 k/uL (3.8-10.6)
[2018-10-25] MEDS: INSULIN ASPART (NovoLOG) 100 UNIT/ML VIAL SQ SCH ×2 (06:51→12:12)
[2018-10-25 06:59] LABS: Anion Gap 7 mmol/L; Blood Urea Nitrogen 34 mg/dL (9-20); Calcium 8.9 mg/dL (8.4-10.2); Carbon Dioxide 32 mmol/L (22-30); Chloride 102 mmol/L (98-107); Glucose 164 mg/dL (74-99); Potassium 3.6 mmol/L (3.5-5.1); Sodium 141 mmol/L (137-145)
[2018-10-25 07:12] LABS: INR 3.8 (<1.2); Prothrombin Time 36.5 sec (9.0-12.0)
[2018-10-25] MEDS: FORMOTEROL FUMARATE 20 MCG/2 ML NEBU INHALATION SCH (07:15)
[2018-10-25] MEDS: BUDESONIDE 1 MG/2 ML NEBU INHALATION SCH (07:15)
[2018-10-25] MEDS: IPRATROPIUM-ALBUTEROL 3 ML NEB INHALATION SCH ×3 (07:15→14:50)
[2018-10-25 08:04] LABS: Lymphocytes # (M) 7.71 k/uL (1.0-4.8); Monocytes # (M) 0.61 k/uL (0-1.0); Neutrophils # (M) 11.98 k/uL (1.3-7.7); Neutrophils % (M) 59 %; Nucleated Red Blood Cells 0 /100 WBC (0-0); Total Cells Counted 100
[2018-10-25] MEDS: amLODIPine 5 MG TAB PO SCH (09:30)
[2018-10-25] MEDS: METOPROLOL TARTRATE 50 MG TAB PO SCH (09:30)
[2018-10-25] MEDS: FUROSEMIDE 40 MG TAB PO SCH ×2 (09:30→15:41)
[2018-10-25 09:39] VITALS: BP 128/73; TEMP 98.7
--- NOTE | 2018-10-25 10:34 | P.DS ---
Providers Date of admission: 10/21/18 15:42 Attending physician: Pool Murphy Consults: 10/21/18 17:15 Consult Physician Routine Consulting Provider: Abby Mcdermott Consult Reason/Comments: copd Do you want consulting provider notified?: Yes 10/21/18 20:00 Consult Physician Routine Consulting Provider: Samira Mcgowan Consult Reason/Comments: afib Do you want consulting provider notified?: Yes Primary care physician: Stated None Hospital Course: 78-year-old pleasant gentleman with history of COPD course stage IV interstitial lung disease and multiple pulmonary nodules strongly suspicious for malignancy. Patient is on BiPAP at this time. Patient is comfortable on BiPAP. Although there is minimally elevated entry into bilateral lung crespo. Patient is appropriate for hospice will discuss with the family and patient tomorrow regarding this. 10/25/2018 Patient is being discharged home with hospice. Patient is presently comfortable on aspirin and oxygen and is requiring BiPAP on as-needed basis. Except for comfort medications rest of the medications were discontinued. Patient has advanced COPD with interstitial lung disease and age poor functional status and with possibility of lung cancer depending on the imaging studies that were done here. Family and patient doesn't know to further pursue these lesions which is reasonable and appropriate. PHYSICAL EXAMINATION: GENERAL: The patient is alert and oriented x3, not in any acute distress. Obese. Presently on Menest cannula oxygen HEENT: Pupils are round and equally reacting to light. EOMI. No scleral icterus. No conjunctival pallor. Normocephalic, atraumatic. No pharyngeal erythema. No thyromegaly. CARDIOVASCULAR: S1 and S2 present. No murmurs, rubs, or gallops. PULMONARY: Decreased air entry into bilateral lung crespo. ABDOMEN: Soft, nontender, nondistended, normoactive bowel sounds. No palpable organomegaly. MUSCULOSKELETAL: No joint swelling or deformity. EXTREMITIES: No cyanosis, clubbing, or pedal edema. NEUROLOGICAL: Gross neurological examination did not reveal any focal deficits. SKIN: No rashes. Assessment and Plan Plan: Acute on chronic hypoxic as well as hypercapnic respiratory failure secondary to COPD exacerbation and underlying interstitial lung disease -Trachea bronchitis -Right lung mass highly suspicious for malignancy considering his age and other comorbidities probably not worth further pursuing this mass. -Chronic atrial fibrillation -Essential hypertension -COPD and chronic hypercapnic respiratory failure secondary to that -Hyperlipidemia -Cor pulmonale chronic Patient is being discharged home with hospice Plan - Discharge Summary Discharge Rx Participant: No New Discharge Prescriptions: New LORazepam [Ativan] 1 mg PO TID 3 Days #9 tab MORPHINE ORAL RENALDO CONC 20mg/mL [Roxanol Oral Soln Conc 20MG/ML] 10 mg PO Q4H PRN 10 Days #30 ml PRN Reason: Pain Discontinued amLODIPine [Norvasc] 5 mg PO BID Vit C/E/Zn/Coppr/Lutein/Zeaxan [Preservision Areds 2 Softgel] 2 cap PO BID predniSONE 10 mg PO DAILY 16 Days #40 tab Warfarin [Coumadin] 7.5 mg PO WESA Warfarin [Coumadin] 3.75 mg PO SUMOTUTH No Action Albuterol Inhaler [Ventolin Hfa Inhaler] 1 - 2 puff INHALATION RT-Q6H PRN PRN Reason: Shortness Of Breath Ipratropium-Albuterol Nebulize [Duoneb 0.5 mg-3 mg/3 ml Soln] 3 ml INHALATION RT-Q4H PRN PRN Reason: Shortness Of Breath Metoprolol Tartrate [Lopressor] 75 mg PO BID Furosemide [Lasix] 40 mg PO BID Theophylline Anhydrous [Theophylline] 400 mg PO HS Discharge Medication List Albuterol Inhaler [Ventolin Hfa Inhaler] 1 - 2 puff INHALATION RT-Q6H PRN 02/09/17 [History] Ipratropium-Albuterol Nebulize [Duoneb 0.5 mg-3 mg/3 ml Soln] 3 ml INHALATION RT-Q4H PRN 06/10/17 [History] Furosemide [Lasix] 40 mg PO BID 10/21/18 [History] Metoprolol Tartrate [Lopressor] 75 mg PO BID 10/21/18 [History] Theophylline Anhydrous [Theophylline] 400 mg PO HS 10/23/18 [History] LORazepam [Ativan] 1 mg PO TID 3 Days #9 tab 10/25/18 [Rx] MORPHINE ORAL RENALDO CONC 20mg/mL [Roxanol Oral Soln Conc 20MG/ML] 10 mg PO Q4H PRN 10 Days #30 ml 10/25/18 [Rx] Activity/Diet/Wound Care/Special Instructions: Home with [facility] [phone] Discharge Disposition: HOME WITH HOSPICE
[2018-10-25 11:40] LABS: Glucose,Whole Blood 167 mg/dL (75-99)
[2018-10-25] MEDS: MULTIVITAMINS, THERA 1 EACH TAB PO SCH (12:16)
[2018-10-25 15:08] VITALS: PULSE 100
[2018-10-25] MEDS: LORazepam 2 MG/ML INJ IV PRN (15:41)
== END 2018-10-25 17:27 | disposition hospice, home (50) | DRG 189 ==
LOC: 3SCARD 15:42 → 2SICU 19:47 → 3SCARD 10-23 10:03
PROVIDERS: ADMIT Hospitalist; ATTEND Hospitalist
PROC: 5A09457 Assistance with Respiratory Ventilation, 24-96 Consecutive Hours, Continuous Positive Airway Pressure (ICD-10-PCS; principal; 2018-10-21)
DX: J96.21 Acute and chronic respiratory failure with hypoxia (principal); G93.41 Metabolic encephalopathy; J18.9 Pneumonia, unspecified organism; I48.1 Persistent atrial fibrillation; C34.91 Malignant neoplasm of unspecified part of right bronchus or lung; J96.22 Acute and chronic respiratory failure with hypercapnia; E66.9 Obesity, unspecified; E78.5 Hyperlipidemia, unspecified; H35.30 Unspecified macular degeneration; I10 Essential (primary) hypertension; I27.29 Other secondary pulmonary hypertension; I27.81 Cor pulmonale (chronic); I48.2 Chronic atrial fibrillation; J43.9 Emphysema, unspecified; J84.10 Pulmonary fibrosis, unspecified; Z51.5 Encounter for palliative care; J20.9 Acute bronchitis, unspecified; Z66 Do not resuscitate; M79.672 Pain in left foot; Z68.35 Body mass index [BMI] 35.0-35.9, adult; Z79.01 Long term (current) use of anticoagulants; Z79.899 Other long term (current) drug therapy; Z87.01 Personal history of pneumonia (recurrent); Z87.891 Personal history of nicotine dependence; Z99.81 Dependence on supplemental oxygen; Z98.42 Cataract extraction status, left eye; Z98.41 Cataract extraction status, right eye; Z79.891 Long term (current) use of opiate analgesic
CPT/HCPCS: 36600; 71045; 80048; 80053; 81001; 82805; 83735; 84100; 85025; 85610; 87324; 87502; 93306; 94640; 94660